=== PATIENT | female | born 1985 | race Caucasian/White ===

== ENCOUNTER → 2019-05-26 07:26 | Outpatient (CLI) | payer OTHER, SELFPAY ==
--- NOTE | ~2019-05-26 | US_ITS ---
EXAMINATION: US abdomen limited DATE: 05/26/2019 07:51 INDICATION: Right upper quadrant pain TECHNIQUE: Multiple grayscale and Doppler ultrasound images of the abdomen were obtained. COMPARISON: 12/20/2015 FINDINGS: The head and and body of the pancreas are normal. The pancreatic tail is obscured by bowel gas. The liver is normal with normal echogenicity and echotexture. No surface nodularity. Normal hepa topetal flow in the main portal vein. The gallbladder is normal with no abnormal wall thickening, per icholecystic fluid or stones. The normal common bile duct measures 3 mm. There was no sonographic Mur phy sign. IMPRESSION: 1. Normal sonographic study of the gallbladder. Reviewed, dictated and finalized at location A. UT GRADER
== END ==
PROVIDERS: PCP Family Medicine; Visit Provider Physician Assistant Medical
DX: R10.11 Right upper quadrant pain (principal)
CPT/HCPCS: 76705

== ENCOUNTER 2019-06-06 09:33 | Outpatient (CLI) | payer OTHER, SELFPAY ==
--- NOTE | ~2019-06-06 | NM_ITS ---
EXAMINATION: NM hepatobiliary w pharm DATE: 06/06/2019 14:19 INDICATION: Right upper quadrant abdominal pain. COMPARISON: Hepatobiliary scintigraphy 01/01/2016, ultrasound 05/26/2019 TECHNIQUE: 5 mCi Tc-99m mebrofenin (Choletec) was administered intravenously. Scintigraphic images o f the abdomen were obtained for one hour. Then, 2 mcg sincalide (Kinevac) IV was administered, and im aging was continued for 30 minutes. FINDINGS: There is normal clearance of radiotracer from the blood pool. There is homogeneous tracer u ptake by the liver. Activity progresses to the bowel and gallbladder. Gallbladder ejection fraction (GBEF) was 25%. Note that most patients with gallbladder dysfunction have GBEF < 35%, which overlaps with the broad normal range of 10-90%. IMPRESSION: 1. Gallbladder ejection fraction in the lower range of normal. Note that this value overlaps with th e range of values that may be seen with gallbladder dysfunction and/or chronic cholecystitis if there is appropriate clinical correlation. Reviewed, dictated and finalized at location A. E ATTENDANT IMPRESSION: 1. Gallbladder ejection fraction in the lower range of normal. Note that this value overlaps with the range of values that may be seen with gallbladder dysfu nction and/or chronic cholecystitis if there is appropriate clinical correlatio nAgapito
== END 2019-06-06 09:34 | disposition home or self-care (01) ==
LOC: ANHIMG 09:38
PROVIDERS: PCP Family Medicine; Visit Provider Physician Assistant Medical
DX: R10.11 Right upper quadrant pain (principal)
CPT/HCPCS: 78227; A9537; J2805

== ENCOUNTER 2019-06-29 02:04 | Day surgery (SDC) | payer OTHER, SELFPAY ==
[2019-06-25 11:16] VITALS: BMI 37.0
[2019-06-29] VITALS (12 sets, daily range): BP systolic 111–145; BP diastolic 66–92; PULSE 47–73; RESP 14–16; TEMP 36.3–36.6; O2SAT 92–99
--- NOTE | ~2019-06-29 | XR_ITS ---
EXAMINATION: XR cholangiogram surg 1st inj EXAM DATE: 06/29/2019 10:04 INDICATION: Cholecystectomy. TECHNIQUE: Multiples Cine fluoroscopic images were obtained during injection of the cystic duct duri ng laparoscopic cholecystectomy. Procedure performed by Dr. Varun Singh MD on 06/29/2019 10:0 4. The DAP for this procedure was 0.3 mGym2. FINDINGS: The cystic duct has been injected. There are no intraluminal filling defects within or st rictures of the common bile duct or opacified hepatic ducts. Forward flow of contrast confirmed into the duodenum. There is a low-lying left hepatic duct takeoff. IMPRESSION: Unremarkable biliary system. Reviewed, dictated and finalized at location A.
[2019-06-29] MEDS: LACTATED RINGERS 1,000 ML 30 ML IV CONT ×2 (06:30→10:30)
[2019-06-29 06:50] LABS: Alanine Aminotransferase 17 U/L (4-35); Albumin Level 4.1 g/dL (3.5-5.1); Alkaline Phosphatase 71 U/L (38-126); Aspartate Amino Transferase 23 U/L (14-36); Bilirubin,Total 0.5 mg/dL (0.2-1.3); Blood Urea Nitrogen 13 mg/dL (7-17); Carbon Dioxide 26 mmol/L (22-30); Chloride 106 mmol/L (98-107); Estimated CRCL calculation 142 ml/min; Estimated Glomerular Filt Rate > 60; Glucose 94 mg/dL (65-105); Potassium 4.1 mmol/L (3.4-5.0); Sodium 136 mmol/L (137-145)
--- NOTE | 2019-06-29 06:59 | WPDANESEPPF ---
Anes - Initial Pre Proc Eval Procedure: Operation Date: 06/29/19 07:30 Proposed Procedures p Laparoscopic Cholecystectomy, Possible Open, Possible Intraoperative Cholangiogram - Varun Singh MD Date/Time: 06/29/19 06:59 Surgeon: aVrun Singh MD Pre Op Diagnosis: Biliary Dyskinesia Patient Data Age: 33 Gender: F Height: 5 ft 6 in Weight: 105.6 kg Last Vital Signs Temp 36.3 C L 06/29/19 06:15 Pulse 73 06/29/19 06:15 Resp 16 06/29/19 06:15 BP 128/66 06/29/19 06:15 Pulse Ox 98 06/29/19 06:15 Allergies Allergy/AdvReac Type Severity Reaction Status Date / Time No Known Allergies Allergy Verified 06/29/19 06:21 Home Medications Medication Instructions Recorded Confirmed Type Adult One Daily Multivitamin 1 tab-cap PO DAILY 06/25/19 06/29/19 History Laboratory Tests 06/29/19 06:35 Sodium 136 mmol/L L mmol/L (137-145) Potassium 4.1 mmol/L mmol/L (3.4-5.0) Chloride 106 mmol/L mmol/L (98-107) Carbon Dioxide 26 mmol/L mmol/L (22-30) BUN 13 mg/dL mg/dL (7-17) Creatinine 0.60 mg/dL L mg/dL (0.7-1.0) Estim Creat Clear Calc 142 ml/min ml/min Estimated GFR > 60 (59 - ) Glucose 94 mg/dL mg/dL (65-105) Calcium 9.0 mg/dL mg/dL (8.4-10.2) Total Bilirubin 0.5 mg/dL mg/dL (0.2-1.3) AST 23 U/L U/L (14-36) ALT 17 U/L U/L (4-35) Alkaline Phosphatase 71 U/L U/L (38-126) Total Protein 7.0 g/dL g/dL (6.3-8.2) Albumin 4.1 g/dL g/dL (3.5-5.1) Patient hx anesthesia problems: none Family hx anesthesia problems: none PMFSH Past Medical History Medical History Scoliosis Surgical History Surgical History Fallopian tube abscess cyst drained 2005 H/O section (~03/19/18) History of appendectomy Hx of arthroscopic knee surgery ROLDAN. Family History Family History Mother Family history of hypercholesterolemia Hypertension Grandparent Family history of glaucoma Cerebrovascular accident Carcinoma of colon Family history of malignant neoplasm of breast Father Diabetes mellitus Social History Social History Smoking status: Never smoker Alcohol intake: current Substance use: never Gender identity (if verbalized by the patient): Female Anes - Eval Final PreProcedure Day of Procedure 06/29/19 06:59 Patient weight: obese Heart: regular rate and rhythm Lungs: clear to auscultation Airway: Mallampati scale class II Neurological: alert and oriented Last oral intake: >/= 8 hours ASA classification: II Emergent: no Anesthetic plan: proceed Anesthesia type and monitoring: general ETT and standard monitoring Informed Consent: The patient's anesthetic plan and its attendant risks and benefits were discussed with the patient/family/POA. Questions were solicited and answers provided to the satisfaction of the patient/family/POA.
--- NOTE | 2019-06-29 07:27 | WPDHPUPDATE1 ---
History and Physical Update Update Date/Time: 06/29/19 07:27 History and Physical has been reviewed, including an updated exam of the patient. There are NO changes in the patient's condition. Risks, benefits, and alternatives have been discussed and questions answered. Patient agrees to proceed with procedure.
[2019-06-29] MEDS: ceFAZolin 2 GM/D5W 50 ML 2 GM/50 ML BAG IVPB (07:28)
[2019-06-29] MEDS: BUPIVACAINE/EPINEPHRINE 0.5% 30 ML VIAL INFILTRATE (08:03)
--- NOTE | 2019-06-29 09:41 | PM.PROC ---
Procedure Note - Detailed Date of procedure: 06/29/19 Pre-op diagnosis: Biliary Dyskinesia Post-op diagnosis: same Procedure performed: Laparoscopic cholecystectomy with intraoperative cholangiogram. Description of procedure: Procedure Details: Patient was seen preoperatively in the holding area and risks, benefits and alternatives confirmed. Patient was taken to the operating room and general anesthesia was induced. A time out was then preformed with the surgery team confirming patient and site of surgery. The abdomen was prepped and draped in the usual sterile fashion. Incision was made just below the umbilicus. Two stay sutures of O- Vicryl were used to elevate the mid-line fascia beneath the umbilicus and a small incision was made under direct vision. The peritoneum was entered. The 12 mm Xiong cannula was introduced under direct vision. First under low flow and then under high flow the abdomen was insufflated with carbon dioxide never exceeding a pressure of 14. Three 5 mm trocars were then introduced under direct vision. The following trocars were introduced under direct vision: a 5 mm in the epigastrium and two 5 mm trocars along the right costal margin. The gall bladder was grasped and the cystic duct and artery were dissected free and clipped with an 5 mm endo-clip spectacle truer. A small hole was made in the cystic duct with endoshears and a cholagio-cath introduced. A cholangiogram was obtained revealing free flow into the cystic duct, common bile duct, common hepatic, right and left hepatic ducts with free flow into the duodenum with no filling defects in the intra nor extrahepatic biliary tree and no dilation. The branch to the left hepatic biliary system was noted to have a low takeoff opposite the cystic duct but otherwise no changes. The catheter was removed and the cystic duct was clipped with a 5 mm endoclip-spectacle truer. The cystic duct was then transected. The cystic artery was also transected at this point. The gall bladder was removed using electrocautery and then removed using a large 10 mm grasper via the umbilical incision. The trocars were removed visualizing hemostasis and the remaining gas evacuated. The large trocar site at the umbilicus was closed with an 0 vicryl figure of 8 suture. The 2 stay sutures mentioned above on either side of the fascia were also tied together to help approximate this midline fascia. Further local anesthetic was placed into each incision for postop pain control. The skin incisions were closed with a subcuticular suture of 4-0 Monocryl. Surgical glue then was applied to all the incisions. Patient tolerated the procedure well was taken to the recovery room in good condition. Anesthesia: MARIELENAA Surgeon: Varun Singh MD [employer] Internship: TAYO Lopez, OR 1st assist Estimated blood loss (mL): 5 Drains: No Packing: No Pathology: yes (The gallbladder) Complications: No immediate complications Condition: stable Disposition: PACU Findings: Cholangiogram showed no filling defects and a low takeoff of the left hepatic duct. Palpation of the gallbladder after removal revealed no stones. A large tubo-ovarian cyst was identified on the right. Pictures were taken for the patient to show her OB/Gyne. There appeared to be a normal tube and ovary on the left.
[2019-06-29] MEDS: ONDANSETRON INJ 4 MG/2 ML VIAL IV PUSH (11:00)
[2019-06-29] MEDS: SCOPOLAMINE 1.5 MG PATCH TRANSDERM (11:05)
== END 2019-06-29 13:50 | disposition home or self-care (01) ==
PROVIDERS: PCP Family Medicine; Visit Provider Surgery
PROC: 0FT44ZZ Resection of Gallbladder, Percutaneous Endoscopic Approach (ICD-10-PCS; CPT 47562; principal; 2019-06-29 07:30)
DX: K81.1 Chronic cholecystitis (principal); E66.9 Obesity, unspecified; Z68.37 Body mass index [BMI] 37.0-37.9, adult
CPT/HCPCS: 47563; 36415; 74300; 80053; 88304; A9270; J0131; J0690; J1100; J1200; J2250; J2270; J2405; J2704; J2710; J3010; J7120; Q9966

== ENCOUNTER 2020-03-29 19:55 | Observation (INO) | payer OTHER, SELFPAY ==
[2020-03-29] VITALS (7 sets, daily range): BP systolic 112–116; BP diastolic 57–70; PULSE 76–92
[2020-03-29] MEDS: TERBUTALINE SULFATE 1 MG/ML VIAL 0.25 MG SUB-Q ×2 (20:49→21:33)
[2020-03-29] MEDS: ACETAMINOPHEN 325 MG TABLET 650 MG PO (23:03)
[2020-03-29] MEDS: diphenhydrAMINE HCl CAP 25 MG CAPSULE PO (23:04)
--- NOTE | 2020-03-30 05:52 | OBADM ---
This patient, Toya Gomes, admitted to the OB room [facility] Post [facility] for observation. Patient/family oriented to hospital policies and general routines including ID bracelet, bed and alarms, visiting hours, pain management, procedures, bathroom and other care routines, personal items, smoking policy, room service/diet, and visiting hours. Patient/Family are encouraged to report perceived risks to care and to ask questions if they do not understand what they are told or what they should do.
--- NOTE | 2020-03-30 05:55 | PC.NURSE ---
Pt states she has been having contractions since this AM And they increased in intensity through day. Previous .
--- NOTE | 2020-04-16 08:14 | PM.OBTRLD ---
OB - Triage/Final Diagnosis Visit Information Reason for evaluation: threatened labor
== END 2020-03-29 23:20 | disposition home or self-care (01) ==
PROVIDERS: Admitting Provider Obstetrics & Gynecology; PCP Family Medicine; Visit Provider Obstetrics & Gynecology
DX: O47.9 False labor, unspecified (principal); Z3A.00 Weeks of gestation of pregnancy not specified
CPT/HCPCS: 96372; A9270; G0378; G0379; J3105

== ENCOUNTER 2020-04-04 03:25 | Inpatient (IN) | payer OTHER, SELFPAY ==
--- NOTE | 2020-03-30 06:11 | PM.OBTRLD ---
OB - Triage/Final Diagnosis Visit Information Date of evaluation: 03/29/20 Reason for evaluation: threatened labor
[2020-04-04] VITALS (60 sets, daily range): BP systolic 92–129; BP diastolic 47–79; PULSE 51–102; RESP 14–20; TEMP 36.1–36.6; O2SAT 95–99; BMI 39.2
[2020-04-04 03:55] LABS: Basophils Percent Auto 0.3 % (0.2-1.2); Eosinophils Absolute Auto 0.1 K/mm3 (0-0.3); Eosinophils Percent Auto 0.9 % (0-4.4); Hematocrit 35.6 % (37.0-47.0); Hemoglobin 11.7 g/dL (12.0-15.0); Immature Granulocyte Absolute 0.08 K/mm3 (0.00-0.031); Immature Granulocyte Percent A 0.8 % (0-0.5); Lymphocytes Absolute Auto 1.96 K/mm3 (0.9-3.2); Lymphocytes Percent Auto 19.4 % (18.3-44.2); Mean Corpuscular HGB Conc 32.9 g/dl (32-36); Mean Corpuscular Hemoglobin 28.7 pg (26-34); Mean Corpuscular Volume 87.3 fl (80-100); Mean Platelet Volume 10.2 fl (7.4-10.4); Monocytes Absolute Auto 0.7 K/mm3 (0.1-0.6); Monocytes Percent Auto 6.7 % (2.6-8.5); Neutrophils Absolute Auto 7.3 K/mm3 (1.3-6.7); Neutrophils Percent Auto 71.9 % (45.5-73.1); Platelet Count Result 317 k/mm3 (150-375); Red Blood Count 4.08 M/mm3 (4.2-5.4); Red Cell Distribution Width 13.3 % (11.5-14.5); White Blood Count 10.1 K/mm3 (4.5-10.0)
--- NOTE | 2020-04-04 04:05 | PC.NURSE ---
SEE OBIX DOCUMENTATION
--- NOTE | 2020-04-04 04:20 | LDADM ---
This patient, Toya Gomes, was admitted to [facility] on 04/04/20 at 03:25. Plans for , pain management and were discussed with patient. Patient/family oriented to hospital policies and general routines including ID bracelet, bed and alarms, visiting hours, pain management, procedures, bathroom and other care routines, personal items, smoking policy, room service/diet and guest tray routines, security routines, and visiting hours. Patient/Family are encouraged to report perceived risks to care and to ask questions if they do not understand what they are told or what they should do. See OBIX for further documentation.
[2020-04-04] MEDS: LACTATED RINGERS 1,000 ML 125 ML IV CONT ×2 (04:31→05:04)
--- NOTE | 2020-04-04 04:42 | WPDANESEPP ---
Anes - Eval Pre Procedure Procedure: Operation Date: 04/16/20 13:30 Proposed Procedures p Repeat Section - Sohail Holloway MD Date/Time: 04/04/20 04:42 Pre Op Diagnosis: Patient Data Age: 34 Gender: F Height: 1.7 m Weight: 113.5 kg Last Vital Signs Temp 36.6 C 04/04/20 03:40 Pulse 91 04/04/20 04:31 BP 129/77 04/04/20 04:31 Allergies Allergy/AdvReac Type Severity Reaction Status Date / Time No Known Allergies Allergy Verified 07/25/19 08:04 Home Medications Medication Instructions Recorded Confirmed Type Adult One Daily Multivitamin 1 tab-cap PO DAILY 06/25/19 04/04/20 History acetaminophen [Mapap 650 mg PO Q4H PRN tablet 03/29/20 Rx (acetaminophen)] Laboratory Tests 04/04/20 04/04/20 03:44 03:44 WBC 10.1 K/mm3 H K/mm3 (4.5-10.0) RBC 4.08 M/mm3 L M/mm3 (4.2-5.4) Hgb 11.7 g/dL L g/dL (12.0-15.0) Hct 35.6 % L % (37.0-47.0) MCV 87.3 fl fl (80-100) MCH 28.7 pg pg (26-34) MCHC 32.9 g/dl g/dl (32-36) RDW 13.3 % % (11.5-14.5) Plt Count 317 k/mm3 k/mm3 (150-375) MPV 10.2 fl fl (7.4-10.4) Immature Gran % (Auto) 0.8 % H % (0-0.5) Neut % (Auto) 71.9 % % (45.5-73.1) Lymph % (Auto) 19.4 % % (18.3-44.2) Wayne % (Auto) 6.7 % % (2.6-8.5) Eos % (Auto) 0.9 % % (0-4.4) Baso % (Auto) 0.3 % % (0.2-1.2) Lymph # (Auto) 1.96 K/mm3 K/mm3 (0.9-3.2) Wayne # (Auto) 0.7 K/mm3 H K/mm3 (0.1-0.6) Eos # (Auto) 0.1 K/mm3 K/mm3 (0-0.3) Baso # (Auto) 0.0 K/mm3 K/mm3 (0.0-0.1) Abs Immat Gran (auto) 0.08 K/mm3 H K/mm3 (0.00-0.031) Absolute Neuts (auto) 7.3 K/mm3 H K/mm3 (1.3-6.7) Absolute Nucleated RBC 0.0 K/mm3 K/mm3 (0.0-0.012) Nucleated RBC % 0.0 % % (0.0-0.2) RPR Pending Patient hx anesthesia problems: post op nausea/vomiting Family hx anesthesia problems: none [facility] Past Medical History Medical History (Updated 07/25/19 @ 08:09 by Gabby Smith) Scoliosis Surgical History Surgical History Fallopian tube abscess cyst drained 2005 H/O section (~03/19/18) History of appendectomy Hx laparoscopic cholecystectomy Hx of arthroscopic knee surgery ROLDAN. Family History Family History Mother Family history of hypercholesterolemia Hypertension Grandparent Family history of glaucoma Cerebrovascular accident Carcinoma of colon Family history of malignant neoplasm of breast Father Diabetes mellitus Social History Social History Smoking status: Former smoker Alcohol intake: current Substance use: never Gender identity (if verbalized by the patient): Female Spiritual care concerns: No Exam Day of Procedure 04/04/20 04:42
--- NOTE | 2020-04-04 05:07 | PM.IMHP ---
H&P: HPI History of Present Illness Date/Time: 04/04/20 05:07 Chief Complaint: Water broke. Narrative: 34 y/o at 37 2/7 weeks here after a gush of fluid. SROM confirmed. Feeling painful contractions. GBS neg. Review of Systems Review of Systems: All systems reviewed & are unremarkable except as noted in HPI and below PMFSH Past Medical History Medical History (Updated 04/04/20 @ 05:10 by Sohail Holloway MD) Scoliosis Surgical History Surgical History (Updated 04/04/20 @ 05:10 by Sohail Holloway MD) Fallopian tube abscess cyst drained 2005 H/O section (~03/19/18) History of appendectomy Hx laparoscopic cholecystectomy Hx of arthroscopic knee surgery ROLDAN. Family History Family History Mother Family history of hypercholesterolemia Hypertension Grandparent Family history of glaucoma Cerebrovascular accident Carcinoma of colon Family history of malignant neoplasm of breast Father Diabetes mellitus Social History Social History Smoking status: Former smoker Alcohol intake: current Substance use: never Gender identity (if verbalized by the patient): Female Spiritual care concerns: No Meds Home Medications and Allergies Home Medications Medication Instructions Recorded Confirmed Type Adult One Daily Multivitamin 1 tab-cap PO DAILY 06/25/19 04/04/20 History acetaminophen [Mapap 650 mg PO Q4H PRN tablet 03/29/20 Rx (acetaminophen)] Allergies Allergy/AdvReac Type Severity Reaction Status Date / Time No Known Allergies Allergy Verified 07/25/19 08:04 Vital Signs Vital Signs - 24 hr 04/04/20 03:40 04/04/20 03:45 04/04/20 04:01 Temperature 36.6 C Pulse Rate 102 H 93 88 Blood Pressure 111/73 120/77 118/79 04/04/20 04:16 04/04/20 04:31 Temperature Pulse Rate 82 91 Blood Pressure 129/70 129/77 Exam Const: Orientation/consciousness: patient oriented x3 Other: Well-developed, well-nourished female in no acute distress. Neck: Thyroid: thyroid normal Lymphatic: no lymphadenopathy noted (in neck, axilla or inguinal nodes) Resp: Effort & Inspection: normal respiratory effort Auscultation: clear to auscultation bilaterally Cardio: Rate: regular rate Rhythm: regular rhythm Heart sounds: S1 normal heart sound present and S2 normal heart sound present GI: Other: ABD: Soft, nontender, nondistended, gravid. No guarding or rebound tenderness. No hepatosplenomegaly. NST reactive. TOCO: contractions every 2-3 min. : General: Yes no CVA tenderness Other: Cervix 4/50/-2, vertex Back/Spine/Pelvis: Back: no CVA tenderness Skin: General skin exam: normal color and no rashes or lesions noted Neuro: General: patient oriented x3 Extrem: Other: Extremities: nontender with no edema Psych: Mental Status: mental status grossly normal Affect: normal affect H&P: Results Labs Labs: Short CBC 04/04/20 Range/Units 03:44 WBC 10.1 H (4.5-10.0) K/mm3 Hgb 11.7 L (12.0-15.0) g/dL Hct 35.6 L (37.0-47.0) % Plt Count 317 (150-375) k/mm3 Assessment and Plan Assessment and plan (1) SROM (spontaneous rupture of membranes): Status: Acute Assessment and Plan: A: IUP at term with SROM, prior P: Offered repeat . She understands risks of surgery to include risks of anesthesia, risks of pain, infection, bleeding, blood products, thromboembolic phenomena and damage to adjacent structures such as bowel, bladder, ureters, blood vessels and nerves. She understands all these risks and elects to proceed with surgery. (2) Term : Code(s): Z34.90 - Encounter for supervision of normal , unspecified, unspecified trimester Status: Acute (3) H/O section: Onset Date: ~03/19/18 Code(s): Z98.891 - History of uterine scar from previous surg
[2020-04-04] MEDS: ceFAZolin 2 GM/D5W 50 ML 2 GM/50 ML BAG IVPB (05:11)
--- NOTE | 2020-04-04 05:22 | WPDANESEFPP ---
Anes - Eval Final PreProcedure Day of Procedure 04/04/20 05:22 Patient weight: obese Heart: regular rate and rhythm Lungs: clear to auscultation Airway: Mallampati scale class II Neurological: alert and oriented Last oral intake: >/= 8 hours ASA classification: II Emergent: no Anesthetic plan: proceed Anesthesia type and monitoring: regional spinal and standard monitoring Informed Consent: The patient's anesthetic plan and its attendant risks and benefits were discussed with the patient/family/POA. Questions were solicited and answers provided to the satisfaction of the patient/family/POA.
--- NOTE | 2020-04-04 06:08 | WPDHPUPDATE1 ---
History and Physical Update Update Date/Time: 04/04/20 06:08 History and Physical has been reviewed, including an updated exam of the patient. There are NO changes in the patient's condition. Risks, benefits, and alternatives have been discussed and questions answered. Patient agrees to proceed with procedure.
--- NOTE | 2020-04-04 06:08 | PM.OBPRVD ---
OB - Delivery Note Procedure Delivery date: 04/04/20 Procedure: Procedures Operation Date: 04/16/20 13:30 <No data on this case meets the specified criteria> Repeat low transverse delivery Incision and drainage of right paratubal cyst Induction method: none Delivery monitor: external FHT and external uterine Route of delivery: (LTCS) Specimen: Yes (cord blood) Quantitative Blood Loss (ml): 175 Anesthesia type: Spinal Disposition: PACU Complications: None Narrative: Findings: The uterus was unremarkable. There was a large, simple-appearing, right-sided paratubal cyst measured approximately 9 x 6 x 4 cm. The left Fallopian tube and bilateral ovaries were unremarkable. The patient was taken to the operating room where she was prepared and draped in the usual sterile fashion in dorsal supine position with a leftward tilt. She received cefazolin preoperatively. Spinal anesthesia was found to be adequate. A Pfannenstiel skin incision was made along the previous scar line and was carried through to the underlying layer of the fascia. The fascia was incised in the midline and the incision was extended laterally. The fascia was dissected free of the underlying rectus muscles. The rectus muscles were in the midline. The peritoneum was identified, tented up and entered sharply. The peritoneal incision was extended superiorly and inferiorly with good visualization of the bladder. The bladder blade was placed. The vesicouterine peritoneum was identified, tented up and entered sharply. The incision was extended laterally and the bladder flap was developed. The bladder blade was replaced. The uterus was then incised sharply in a transverse fashion along the lower uterine segment. The incision was extended laterally. The infant's head was delivered atraumatically to the sterile field, followed by the body. The nose and mouth were bulb suctioned. After a delay, the cord was clamped and cut. The infant was handed off the field. Cord blood was collected. The placenta was removed manually and was passed off the field. The uterus was exteriorized and cleared of all clots and debris. The uterine incision was reapproximated using 0 Monocryl in a running, locked fashion. Excellent hemostasis resulted as did excellent reapproximation of the normal anatomy. The right paratubal cyst was incised and drained of serous fluid. The uterus was returned the abdomen. The pelvis was irrigated copiously with warmed normal saline. Rigorous hemostasis was assured. The fascial layer was reapproximated using 0 Vicryl in a running fashion. The skin was closed with a running, subcuticular stitch of 4 0 Vicryl. Dermaflex was applied externally. Sponge, lap, needle and instrument counts were correct. The patient was taken to the recovery room in stable condition. The went to the nursery in stable condition. I was present and scrubbed the entire procedure. Baby Date of : 04/04/20 Time of : 05:33 Weeks of gestation at delivery: 37 gender: Male Weight (pounds): 7 Weight (ounces): 13 presentation: vertex Placenta delivery description: Manual Removal and Normal Configuration cord vessel description: 3 Vessels score one minute: 9 score five minutes: 9
--- NOTE | 2020-04-04 06:13 | PM.OBDSVD ---
DS: Admitting Diagnosis Admitting Diagnosis Admitting Diagnosis: SROM IUP at 37 2/7 weeks Prior DS: Discharge Diagnosis Discharge Diagnosis (1) H/O section: Onset Date: ~03/19/18 Code(s): Z98.891 - History of uterine scar from previous surgery Status: Acute (2) Term : Code(s): Z34.90 - Encounter for supervision of normal , unspecified, unspecified trimester Status: Acute (3) SROM (spontaneous rupture of membranes): Status: Acute OB - DS: Summary OB Procedures : None OB Procedures Intrapartum: OB Procedures: : None Peripartum Data Procedures: Procedures Operation Date: 04/04/20 05:15 <No data on this case meets the specified criteria> Operation Date: 04/16/20 13:30 <No data on this case meets the specified criteria> Time Spent with Patient Time attestation: Total time spent providing and/or coordinating discharge services: DS: Data Data Completed and Pending Labs on day of discharge: Labs from last 24 hours 04/04/20 04/04/20 04/04/20 03:44 03:44 03:44 WBC 10.1 H RBC 4.08 L Hgb 11.7 L Hct 35.6 L MCV 87.3 MCH 28.7 MCHC 32.9 RDW 13.3 Plt Count 317 MPV 10.2 Immature Gran % (Auto) 0.8 H Neut % (Auto) 71.9 Lymph % (Auto) 19.4 [place] % (Auto) 6.7 Eos % (Auto) 0.9 Baso % (Auto) 0.3 Lymph # (Auto) 1.96 [place] # (Auto) 0.7 H Eos # (Auto) 0.1 Baso # (Auto) 0.0 Abs Immat Gran (auto) 0.08 H Absolute Neuts (auto) 7.3 H Absolute Nucleated RBC 0.0 Nucleated RBC % 0.0 RPR Pending Blood Type O Positive Antibody Screen Negative Discharge Plan Discharge Attending physician on discharge: Sohail Holloway Consulting providers: Rafael Duque Discharging Clinician: Sohail Holloway Patient Disposition: Home, Self-Care Activity: may shower, may drive after 2 weeks and pelvic rest Diet: regular Wound Care Instructions: incision open to air Discharge Instructions: Call or return if temperature above 100.4? F, increased abdominal pain, increased vaginal bleeding or any new problems. Education: Mom and Baby Guide Given to: Mother Follow-Up: Call your delivering provider's office for an appointment to be seen in: 4 Weeks Mom and baby should come to the [facility] for the follow-up appointment. Appointment Date/Time: April 07, 2020 at 10:00 am What to expect at your follow-up visit: Blood Pressure Check Physical Assessment Call [phone] if you are unable to keep your appointment time. BREAST CARE: * Wear a snug supportive bra. * For engorgement discomfort: Breast Feeding: * Apply warm moist washcloths * Express milk as needed to relieve engorgement * Wear loose clothing Bottle Feeding: * May apply ice packs * For sore nipples: * Identify correct latch-on * Apply warm moist washcloths before and after nursing * Air dry nipples after nursing * May apply Lansinoh cream to nipples ABDOMINAL INCISION: (if applicable) * Allow incision to air dry * Do NOT use lotions for powders on your incision * When showering, allow soap and water to run over the incision, but do not wash incision EPISIOTOMY/PERINEAL CARE: * Until bleeding stops, use your jose bottle after urinating * Change your pad frequently throughout the day * You may take sitz baths several times a day (fill your bathtub with warm water and soak for 20 minutes.) Do NOT bathe in the water * No tub baths until seen by your physician - You may shower ACTIVITY: * Rest as much as possible. * Do not exercise or lift anything heavier than your baby (such as laundry or other children.) * Avoid stairs or driving as much as possible. * Do not put anything into the vagina. No douching, tampons, or sexual activity until seen by
--- NOTE | 2020-04-04 06:30 | PC.NURSE ---
Pt states SROM cleaer fluid at 0205. Leaking moderate amount clear fluid on arrival. Contractions rated as 6. SVE 3.[address] Holloway notified at 0405 and will come in to do
[2020-04-04] MEDS: OXYTOCIN 30 UNITS/NS 500 ML 30 UNITS/500 ML BAG 125 UNITS IV CONT (08:09)
--- NOTE | 2020-04-04 08:50 | PC.NURSE ---
Pt taken to room 110 for family to see baby.
--- NOTE | 2020-04-04 09:25 | PC.NURSE ---
Pt taken to rrom 281. Report given.
[2020-04-04] MEDS: IBUPROFEN 600 MG TABLET PO ×2 (11:50→18:46)
--- NOTE | 2020-04-04 12:30 | OBPPTRN ---
0984 Patient transferred to post room #281 via stretcher. Support person present. Oriented to unit, room, information board, rooming in, admission packet and security measures. Patient verbalizes understanding.
[2020-04-04] MEDS: DEXTROSE 5%/0.45% SOD CHL 1,000 ML 125 ML IV CONT (12:55)
[2020-04-04] MEDS: SIMETHICONE 80 MG TAB.CHEW PO (18:47)
[2020-04-05] MEDS: IBUPROFEN 600 MG TABLET PO ×4 (00:13→18:49)
[2020-04-05 00:15] VITALS: BP 98/56; PULSE 66; RESP 16; TEMP 36.2; O2SAT 97
[2020-04-05 05:20] VITALS: BP 110/63; PULSE 65; RESP 16; TEMP 36.7; O2SAT 99
[2020-04-05] MEDS: SIMETHICONE 80 MG TAB.CHEW PO (05:28)
[2020-04-05 06:32] LABS: Basophils Percent Auto 0.2 % (0.2-1.2); Eosinophils Absolute Auto 0.2 K/mm3 (0-0.3); Eosinophils Percent Auto 1.4 % (0-4.4); Hematocrit 30.4 % (37.0-47.0); Hemoglobin 9.9 g/dL (12.0-15.0); Immature Granulocyte Absolute 0.04 K/mm3 (0.00-0.031); Immature Granulocyte Percent A 0.4 % (0-0.5); Lymphocytes Absolute Auto 1.58 K/mm3 (0.9-3.2); Lymphocytes Percent Auto 14.3 % (18.3-44.2); Mean Corpuscular HGB Conc 32.6 g/dl (32-36); Mean Corpuscular Hemoglobin 28.9 pg (26-34); Mean Corpuscular Volume 88.9 fl (80-100); Mean Platelet Volume 10.2 fl (7.4-10.4); Monocytes Absolute Auto 0.8 K/mm3 (0.1-0.6); Monocytes Percent Auto 6.8 % (2.6-8.5); Neutrophils Absolute Auto 8.5 K/mm3 (1.3-6.7); Neutrophils Percent Auto 76.9 % (45.5-73.1); Platelet Count Result 255 k/mm3 (150-375); Red Blood Count 3.42 M/mm3 (4.2-5.4); Red Cell Distribution Width 13.5 % (11.5-14.5); White Blood Count 11.1 K/mm3 (4.5-10.0)
[2020-04-05 07:45] VITALS: BP 114/65; PULSE 72; RESP 18; TEMP 36.7
--- NOTE | 2020-04-05 07:53 | PM.OBPNVD ---
OB - PN: Subj Subjective Date/time seen: 04/05/20 07:53 Interval history: Patient doing well this AM. She is ambulating to the restroom. She has not yet attempted PO. She reports adequate pain control. Her bleeding is normal and she reports normal lochia. She denies fever, chills, N/V. She has not yet passed flatus. Patient comments: no complaints and pain well controlled; no flatus present OB - PN: Obj Data Labs CBC & Chem 7: 04/05/20 06:26 Labs: Laboratory Results - last 24 hr 04/05/20 06:26 WBC 11.1 H RBC 3.42 L Hgb 9.9 L Hct 30.4 L MCV 88.9 MCH 28.9 MCHC 32.6 RDW 13.5 Plt Count 255 MPV 10.2 Immature Gran % (Auto) 0.4 Neut % (Auto) 76.9 H Lymph % (Auto) 14.3 L [place] % (Auto) 6.8 Eos % (Auto) 1.4 Baso % (Auto) 0.2 Lymph # (Auto) 1.58 [place] # (Auto) 0.8 H Eos # (Auto) 0.2 Baso # (Auto) 0.0 Abs Immat Gran (auto) 0.04 H Absolute Neuts (auto) 8.5 H Absolute Nucleated RBC 0.0 Nucleated RBC % 0.0 OB - PN A/P Plan day: 1 Plan: routine care Comments: patient doing well this AM will plan to D/C [place] once ambulating advance diet as tolerated H/H continue routine PP care plan for infant circumcision today Time Spent With Patient Time: Total time spent is greater than 50% in coordination of care (as documented) at patient's floor/unit and/or counseling patient: Time with patient: less than 15 minutes Review of Systems Constitutional: Constitutional: Reports no additional constitutional complaints Cardiovascular: Cardiovascular: Reports no additional cardiovascular complaints Respiratory: Respiratory: Reports no additional respiratory complaints Gastrointestinal: Gastrointestinal: Reports no additional gastrointestinal complaints Genitourinary: Genitourinary: Reports no additional female genitourinary complaints Exam Const: General: comfortable and no acute distress Resp: Effort & Inspection: normal respiratory effort Auscultation: clear to auscultation bilaterally Cardio: Rate: regular rate GI: GI Palp: Yes Soft to palpation and Yes Tenderness to palpation present (GI) (appropriately tender around incision ) Auscultation: normal bowel sounds Other: fundus firm and below umbilicus Incision C/D/I Urinary Catheter: Urinary Catheter: urine clear Psych: Appearance: grossly normal Mental Status: mental status grossly normal Affect: normal affect
[2020-04-05] MEDS: POLYSACCHARIDE IRON COMPLEX 150 MG CAPSULE PO ×2 (08:46→16:28)
[2020-04-05] MEDS: MULTIVIT/MIN/PREN/FOL AC/IRON TABLET 1 TAB PO (08:46)
[2020-04-05] MEDS: DOCUSATE SODIUM 100 MG CAPSULE PO ×2 (08:46→16:28)
--- NOTE | 2020-04-05 13:42 | WPDANLDPN2 ---
Anes-Prog Note L&D Date/Time: 04/05/20 13:42 Comfortable throughout: section Neuraxial method: spinal Epidural/Spinal procedure site: clean & non-tender Neuro status: Neuro function grossly intact. Cardiovascular status: normal Respiratory status: normal Airway patency: baseline Mental status: baseline Post-Op hydration status: normal Vital Signs: Last Vital Signs Temp 36.7 C 04/05/20 07:45 Pulse 72 04/05/20 07:45 Resp 18 04/05/20 07:45 BP 114/65 04/05/20 07:45 Pulse Ox 99 04/05/20 05:20 Pain score (VAS): 0/10. Patient resting in bed at time of assessment, appears comfortable. Support person at bedside. I/O: Intake & Output 04/04/20 04/05/20 04/05/20 23:59 07:59 15:59 Intake Total 3300 1500 Output Total 2600 1800 Balance 700 -300 Post-procedural complaints: none Patient feedback: Patient satisfied with anesthetic care.
--- NOTE | 2020-04-05 13:51 | WPDANLDNPN2 ---
Anes-Prog Note L&D-Neuraxial Date/Time: 04/05/20 13:51 Neuraxial medications: intrathecal PF morphine Opiod-related complaints: none Patient feedback: Patient satisfied with post-operative pain management.
[2020-04-05 20:05] VITALS: BP 118/65; PULSE 76; RESP 15; TEMP 36.9; O2SAT 99
[2020-04-06] MEDS: IBUPROFEN 600 MG TABLET PO ×2 (02:05→08:03)
--- NOTE | 2020-04-06 07:52 | P.DS_ITS ---
DS: Admitting Diagnosis Admitting Diagnosis Admitting Diagnosis: intrauterine in the third trimester OB - DS: Summary OB Procedures : None OB Procedures Intrapartum: OB Procedures: : None Peripartum Data Infant Delivery Method: Section Procedures: Procedures Operation Date: 04/04/20 05:15 Actual Procedures Side Surgeon p Section Sohail Holloway MD Operation Date: 04/16/20 13:30 <No data on this case meets the specified criteria> complications: none Status at Discharge Functional status at discharge: independent ambulation Overall status at discharge: patient is progressing back to baseline Time Spent with Patient Time attestation: Total time spent providing and/or coordinating discharge services: Time spent: Less than 30 minutes Exam Const: General: comfortable and no acute distress Resp: Effort & Inspection: normal respiratory effort Auscultation: clear to auscultation bilaterally Cardio: Rate: regular rate GI: Inspection: non-distended GI Palp: Yes Soft to palpation, No Firmness to palpation present (GI), Yes Tenderness to palpation present (GI) (mild tenderness over incision ) and No Guarding due to palpation present (GI) Auscultation: normal bowel sounds Psych: Appearance: grossly normal Mental Status: mental status grossly normal Discharge Plan Discharge Attending physician on discharge: Sohail Holloway Discharging Clinician: Sohail Holloway Patient Disposition: Home, Self-Care Activity: may shower, may drive after 2 weeks and pelvic rest Diet: regular Wound Care Instructions: incision open to air Discharge Instructions: Call or return if temperature above 100.4? F, increased abdominal pain, incre ased vaginal bleeding or any new problems. Stand Alone Forms: General Discharge Information Follow-up/Referrals: Sohail Holloway MD [Physician] - 4 Weeks Discharge Medications: New hydrocodone-acetaminophen 5-325 mg tablet 1 tablet PO Q4H PRN (Reason: pain) Qty: 28 RF: 0 ibuprofen 600 mg Tablet 600 mg PO Q6H PRN (Reason: Cramping) Qty: 30 RF: 0 Jbk-Q-Smrvzw Cream 1 applic topical PRN PRN (Reason: Sore Nipples) Qty: 28 RF: 0 docusate sodium 100 mg Capsule 100 mg PO BID Qty: 30 RF: 0 Continued Adult One Daily Multivitamin 1 tab-cap PO DAILY RF: 0 acetaminophen [Mapap (acetaminophen)] 325 mg Tablet 650 mg PO Q4H PRN (Reason: Headache) RF: 0 Date of admission: 04/04/20 03:25 Primary Care Provider: Sheldon Williamson Admitting Provider: Sohail Holloway Attending physician on admission: Sohail Holloway Condition: Stable
[2020-04-06 08:00] VITALS: BP 117/75; PULSE 70; RESP 18; TEMP 36.9
[2020-04-06] MEDS: POLYSACCHARIDE IRON COMPLEX 150 MG CAPSULE PO (08:03)
[2020-04-06] MEDS: DOCUSATE SODIUM 100 MG CAPSULE PO (08:03)
[2020-04-06] MEDS: MULTIVIT/MIN/PREN/FOL AC/IRON TABLET 1 TAB PO (08:03)
[2020-04-07 09:56] VITALS: BP 121/64; PULSE 86; RESP 20; TEMP 36.6; O2SAT 99
[2020-04-07 13:02] LABS: Rapid Plasma Reagin Non-Reactive (NonReactive)
== END 2020-04-06 12:05 | disposition home or self-care (01) | DRG 788 ==
LOC: ANHLDR 06:17 → ANHOB2 04-06 07:59 → ANHLDR 04-07 12:04 → ANHOB2 04-07 12:04 → ANHOBPP 04-07 12:04
PROVIDERS: Admitting Provider Obstetrics & Gynecology; PCP Family Medicine; Visit Provider Student in an Organized Health Care Education/Training Program
PROC: 10D00Z1 Extraction of Products of Conception, Low, Open Approach (ICD-10-PCS; CPT 59514; principal; 2020-04-04 05:15)
DX: O34.211 Maternal care for low transverse scar from previous cesarean delivery (principal); O99.214 Obesity complicating childbirth; E66.9 Obesity, unspecified; Z87.891 Personal history of nicotine dependence; N83.8 Other noninflammatory disorders of ovary, fallopian tube and broad ligament; Z3A.37 37 weeks gestation of pregnancy; Z37.0 Single live birth
CPT/HCPCS: 36415; 85025; 86592; 86850; 86900; 86901; A9270; J0131; J0690; J2274; J2370; J2405; J2590; J7120

== ENCOUNTER 2022-01-24 17:39 | Emergency (ER) | payer OTHER, SELFPAY ==
--- NOTE | 2022-01-24 17:43 | ED.URI ---
HPI - URI/Sore Throat General Chief Complaint: Upper Respiratory Infection Stated Complaint: sore throat, sore in mouth Time Seen by Provider: 01/24/22 17:43 Source: patient and RN notes reviewed History of Present Illness HPI Narrative: Patient is a 36-year-old female who presents the urgent care with complaints of a sore throat and sores inside of the mouth. Patient states that the sore started on Tuesday and worsened over the weekend. Patient has had a positive exposure to her nephew who was diagnosed with strep. Patient is not taking anything [id number] for her symptoms. Denies any fever, nausea or vomiting. No other acute complaints. No acute distress noted. Patient aware of the plan of care. Some parts of this dictation were generated by voice recognition software and may contain typographical and/or grammatical inaccuracies. Related Data Home Medications Medication Instructions Recorded Confirmed Adult One Daily Multivitamin 1 tab-cap PO DAILY 06/25/19 04/22/21 etonogestrel 68 mg subdermal 1 implant subdermal ONCE 04/22/21 04/22/21 implant (Nexplanon) Allergies Allergy/AdvReac Type Severity Reaction Status Date / Time No Known Allergies Allergy Verified 06/17/21 08:36 Review of Systems Review of Systems: CONSTITUTIONAL: Denies fever, chills, or sweats. EYES: Denies visual changes, redness, or discharge. ENT: Denies rhinorrhea, congestion, or otalgia. Reports of sore throat and blisters in the mouth. CARDIOVASCULAR: Denies chest pain, palpitations, or edema. RESPIRATORY: Denies cough or dyspnea. GASTROINTESTINAL: Denies abdominal pain, nausea, vomiting, or diarrhea. GENITOURINARY: Denies dysuria or hematuria. SKIN: Denies rash or itching. MUSCULOSKELETAL: Denies back pain, joint pain, or myalgia. NEUROLOGIC: Denies headache, numbness, or weakness. All other systems reviewed are negative, except as documented in HPI. [facility] Past Medical History Medical History (Updated 01/24/22 @ 18:00 by VIKTOR Maza) Scoliosis Surgical History Surgical History (Updated 06/17/21 @ 08:36 by Jennifer Mendosa) Fallopian tube abscess cyst drained 2005 H/O section (~03/19/18) History of appendectomy Hx laparoscopic cholecystectomy Hx of arthroscopic knee surgery ROLDAN. Family History Family History (System 06/17/21 @ 08:36 by Jennifer Mendosa) Mother Family history of hypercholesterolemia Hypertension Grandparent Family history of glaucoma Cerebrovascular accident Carcinoma of colon Family history of malignant neoplasm of breast Father Diabetes mellitus Social History Social History (System 06/17/21 @ 08:36 by Jennifer Mendosa) Smoking status: Former smoker Alcohol intake: current Substance use: never Gender identity (if verbalized by the patient): Female Spiritual care concerns: No Comments At the time of my signature, I reviewed and agree with the nursing past medical, surgical, social, and family history. There is no relevant family history pertinent to the patient complaint. Exam Narrative: GENERAL: This is a well-nourished, well-developed patient, in no apparent distress. HEAD: normocephalic, atraumatic. EYES: PERRL. Sclera clear/white. Vision is grossly intact. EARS: External ears normal, auditory canals clear and without drainage, TMs normal without perforation. Hearing grossly intact. NOSE: External nose normal with no obvious nasal discharge, nares without redness, no rhinorrhea. THROAT: Mucous membranes moist. Moderate erythema to posterior pharynx with notable petechiae to the roof of the mouth and canker sores to the inside of the upper lip NECK: Neck supple, non-tender without lymphadenopathy, masses or thyromegaly. CARDIOVASCULAR: Regular rate and rhythm without murmurs, gallops, or rubs. RESPIRATORY: Clear to auscultation. Breath sounds equal bilaterally. No wheezes, rales, or rhonchi. SKIN: warm, intact with no suspicious lesions or rash, goo
[2022-01-24 17:52] VITALS: BP 116/77; PULSE 97; RESP 16; TEMP 36.8; O2SAT 100
== END 2022-01-24 18:14 | disposition home or self-care (01) ==
PROVIDERS: Emergency Provider Nurse Practitioner Family
DX: K12.0 Recurrent oral aphthae (principal); J02.9 Acute pharyngitis, unspecified; Z87.891 Personal history of nicotine dependence; M41.9 Scoliosis, unspecified
CPT/HCPCS: 87081; 87880; 99213; G0463

== ENCOUNTER 2022-02-27 17:07 | Emergency (ER) | payer OTHER, SELFPAY ==
[2022-02-27 17:21] VITALS: BP 123/77; PULSE 116; RESP 16; TEMP 38.1; O2SAT 100
--- NOTE | 2022-02-27 17:38 | ED.URI ---
HPI - URI/Sore Throat General Chief Complaint: Upper Respiratory Infection Stated Complaint: SORE THROAT/EARACHE Time Seen by Provider: 02/27/22 17:38 Source: patient, RN notes reviewed and old records reviewed Mode of arrival: ambulatory Limitations: no limitations History of Present Illness HPI Narrative: 36-year-old female presents to [facility] with complaints of sore throat for the past 2 days with low grade fevers and burning feeling her throat and she wants to be checked for strep, Patient reports that she did a test at home on which was suspicious of being positive and plans on repeating today. Patient did take some Tylenol for her fever and discomfort. Patient denies any cough, nausea or vomiting, some ear pain right,denies any body aches. MD elicited complaint: sore throat and other (ear pain) Onset (ago): day(s) (2) Pain scale (0-10): 4 Treatments prior to arrival: acetaminophen Related Data Home Medications Medication Instructions Recorded Confirmed Adult One Daily Multivitamin 1 tab-cap PO DAILY 06/25/19 04/22/21 etonogestrel 68 mg subdermal 1 implant subdermal ONCE 04/22/21 04/22/21 implant (Nexplanon) Allergies Allergy/AdvReac Type Severity Reaction Status Date / Time No Known Allergies Allergy Verified 02/27/22 17:29 Review of Systems Review of Systems: CONSTITUTIONAL: REports malaise, chills, sweats, or fever. EYES: Denies visual changes, redness, or discharge. ENT: Reports rhinorrhea, congestion, no sinus pain, right otalgia and sore throat. CARDIOVASCULAR: Denies chest pain, palpitations, or edema. RESPIRATORY: Reports no acute cough.? Denies dyspnea. GASTROINTESTINAL: Denies abdominal pain, nausea, vomiting, diarrhea SKIN: Denies rash or itching. MUSCULOSKELETAL: Denies myalgia. NEUROLOGIC: Denies headache. All systems reviewed & are unremarkable except as noted in HPI and below PMFSH Past Medical History Medical History (Updated 03/05/22 @ 07:18 by Dulce Maria Gilman NP) Fracture of left foot Scoliosis Surgical History Surgical History Fallopian tube abscess cyst drained 2005 H/O section (~12/09/18) History of appendectomy Hx laparoscopic cholecystectomy Hx of arthroscopic knee surgery ROLDAN. Family History Family History Mother Family history of hypercholesterolemia Hypertension Grandparent Family history of glaucoma Cerebrovascular accident Carcinoma of colon Family history of malignant neoplasm of breast Father Diabetes mellitus Social History Social History (Updated 03/05/22 @ 07:16 by Dulce Maria Gilman NP) Smoking status: Former smoker Alcohol intake: former Alcohol use details: social only presently Substance use: never Gender identity (if verbalized by the patient): Female Spiritual care concerns: No Comments At time of signature, agree with nursing past medical, surgical, social and family history. There is no relevant family history pertinent to the presenting complaint Exam Narrative: GENERAL: Well-appearing, well-nourished, and in no acute distress. HEAD: Normocephalic EYES: PERRLA, conjunctivae clear ENT: Nares clear, turbinates edematous and erythematous, clear discharge. Mucous membranes moist. TM pearly stephenson with dull light reflex bilaterally; no tragal tenderness. Oropharynx erythematous without lesions. Tonsils are enlarged and with exudate on right tonsil, no drooling, no hoarseness, no trismus, uvula midline. NECK: Supple. lymphadenopathy CHEST: Clear to auscultation, breath sounds equal. No wheezing, rhonchi, rales, or stridor. No respiratory distress, speaks in full sentences.SAO2 100% on room air HEART: Regular rate and rhythm. No murmur heard. SKIN: Warm, dry, no rash. NEURO: Alert and oriented x3. PSYCH: Normal mood and affect Course Course
== END 2022-02-27 17:59 | disposition home or self-care (01) ==
PROVIDERS: Emergency Provider Registered Nurse
DX: J02.0 Streptococcal pharyngitis (principal); Z87.891 Personal history of nicotine dependence; M41.9 Scoliosis, unspecified
CPT/HCPCS: 81025; 87880; 99213; G0463

== ENCOUNTER 2022-10-06 20:34 | Observation (INO) | payer OTHER, SELFPAY ==
[2022-10-06 20:51] VITALS: BP 126/70; PULSE 98
[2022-10-06 21:01] VITALS: BMI 40.4
[2022-10-06 21:09] LABS: Appearance Urine Clear (Clear); Bacteria Urine 1+ /hpf; Bilirubin Urine Negative (Negative); Blood Urine Negative (Negative); Color Urine Yellow (Yellow); Glucose Urine UA 1+ mg/dL (Negative); Ketones Urine Trace mg/dL (Negative); Leukocyte Esterase Ur 1+ LEU/UL (Negative); Nitrate Urine Negative (Negative); Non Pathogenic Casts 0-2; Protein Urine Trace mg/dL (Negative); RBC Urine 0-2 /hpf (0-2); Specific Grav Ur 1.018 (1.001-1.035); Squamous Epithelial Cell Urine Few /hpf (Few); Urobilinogen Urine 0.2 mg/dL (<2.0)
[2022-10-06 21:10] LABS: Add Urine Microscopic? YES
[2022-10-06] MEDS: NIFEdipine 10 MG CAPSULE PO (22:13)
[2022-10-06] MEDS: BETAMETHASONE SOD PHOS/ACETATE 30 MG/5 ML VIAL 12 MG IM (22:15)
--- NOTE | 2022-10-06 22:50 | WPDOBADMIT ---
Obstetrics - Admit Note Admission Note: 37 y/o at 35 5/7 weeks here with contractions. No vaginal bleeding. No leakage of fluid. She has responded well to PO hydration and a dose of Procardia 10 mg po. AVSS NST reactive TOCO: contractions irregularly ABD soft, nontender, gravid, vertex EXT nontender Cervix closed / thick A: IUP at 35 5/7 weeks with contractions, stable. P: Started steroid course. Continue Procardia 10 mg po q 6 hours for now. Home with precautions, to f/u as scheduled.
--- NOTE | 2022-10-09 10:27 | PM.OBTRLD ---
OB - Triage/Final Diagnosis Visit Information Comments/Additional reasons for admission: I have assessed the risk for this patient, Toya Chirinosharveyramseyidaignacio, and determined that she would benefit from observation care. Evaluation Laboratory results: Laboratory Tests 10/06/22 20:57 Urine Color Yellow Urine Appearance Clear Urine pH 6.0 Ur Specific [place] 1.018 Urine Protein Trace Urine Glucose (UA) 1+ H Urine Ketones Trace H Ur Blood (Man) Negative Urine Nitrate Negative Urine Bilirubin Negative Urine Urobilinogen 0.2 Leukocyte Esterase Rfl 1+ H Urine RBC 0-2 Urine WBC 11-20 H Ur Squamous Epith Cells Few Urine Bacteria 1+ H Urine Casts 0-2 Final Diagnosis (1) contractions: Code(s): O47.00 - False labor before 37 completed weeks of gestation, unspecified trimester Status: Acute
== END 2022-10-06 23:19 | disposition home or self-care (01) ==
PROVIDERS: Admitting Provider Obstetrics & Gynecology; Visit Provider Obstetrics & Gynecology
DX: O47.03 False labor before 37 completed weeks of gestation, third trimester (principal); Z3A.35 35 weeks gestation of pregnancy
CPT/HCPCS: 59025; 81001; 87086; 87088; 96372; A9270; G0378; G0379; J0702

== ENCOUNTER 2022-10-07 17:16 | Outpatient (CLI) | payer OTHER, SELFPAY ==
[2022-10-07] MEDS: BETAMETHASONE SOD PHOS/ACETATE 30 MG/5 ML VIAL 12 MG IM (17:31)
== END 2022-10-07 17:17 | disposition home or self-care (01) ==
LOC: ANHOBOP 17:19
PROVIDERS: Visit Provider Obstetrics & Gynecology
DX: O36.8990 Maternal care for other specified fetal problems, unspecified trimester, not applicable or unspecified (principal); Z3A.00 Weeks of gestation of pregnancy not specified
CPT/HCPCS: 96372; J0702

== ENCOUNTER 2022-10-16 10:24 | Observation (INO) | payer OTHER, SELFPAY ==
[2022-10-16 10:40] VITALS: TEMP 36.9
--- NOTE | 2022-10-18 12:45 | PM.OBTRLD ---
OB - Triage/Final Diagnosis Visit Information Reason for evaluation: threatened labor Comments/Additional reasons for admission: I have assessed the risk for this patient, Toya Eron Gomes, and determined that she would benefit from observation care.
== END 2022-10-16 12:40 | disposition home or self-care (01) ==
PROVIDERS: Admitting Provider Obstetrics & Gynecology; Visit Provider Obstetrics & Gynecology
DX: O47.1 False labor at or after 37 completed weeks of gestation (principal); Z3A.37 37 weeks gestation of pregnancy
CPT/HCPCS: G0378; G0379

== ENCOUNTER 2022-10-25 05:48 | Inpatient (IN) | payer OTHER, SELFPAY ==
[2022-10-25] VITALS (56 sets, daily range): BP systolic 72–126; BP diastolic 39–100; PULSE 51–131; RESP 15–20; TEMP 36.2–36.9; O2SAT 90–100; BMI 41.3
--- NOTE | 2022-10-25 05:48 | LDADM ---
This patient, Toya Gomes, was admitted to Labor/Delivery/Recovery 120 on 10/25/22 at 05:48. Plans for labor, pain management and were discussed with patient. Patient/family oriented to hospital policies and general routines including ID bracelet, bed and alarms, visiting hours, pain management, procedures, bathroom and other care routines, personal items, smoking policy, room service/diet and guest tray routines, infant security routines, and visiting hours. Patient/Family are encouraged to report perceived risks to care and to ask questions if they do not understand what they are told or what they should do. See OBIX for further documentation.
[2022-10-25] MEDS: LACTATED RINGERS 1,000 ML 125 ML IV CONT ×2 (06:38→07:33)
[2022-10-25 06:47] LABS: Basophils Percent Auto 0.2 % (0.2-1.2); Eosinophils Absolute Auto 0.1 K/mm3 (0-0.3); Eosinophils Percent Auto 0.5 % (0-4.4); Hematocrit 34.9 % (37.0-47.0); Hemoglobin 11.3 g/dL (12.0-15.0); Immature Granulocyte Absolute 0.06 K/mm3 (0.00-0.031); Immature Granulocyte Percent A 0.6 % (0-0.5); Lymphocytes Absolute Auto 2.06 K/mm3 (0.9-3.2); Lymphocytes Percent Auto 20.9 % (18.3-44.2); Mean Corpuscular HGB Conc 32.4 g/dl (32-36); Mean Corpuscular Hemoglobin 29.2 pg (26-34); Mean Corpuscular Volume 90.2 fl (80-100); Mean Platelet Volume 10.3 fl (7.4-10.4); Monocytes Absolute Auto 0.7 K/mm3 (0.1-0.6); Monocytes Percent Auto 6.6 % (2.6-8.5); Neutrophils Percent Auto 71.2 % (45.5-73.1); Platelet Count Result 257 k/mm3 (150-375); Red Blood Count 3.87 M/mm3 (4.2-5.4); White Blood Count 9.9 K/mm3 (4.5-10.0)
--- NOTE | 2022-10-25 07:01 | WPDANESEPPF ---
Anes - Initial Pre Proc Eval Date/Time: 10/25/22 07:01 Surgeon: Sohail Holloway MD Pre Op Diagnosis: Contractions Patient Data Age: 37 Gender: F Height: 1.68 m Weight: 116 kg Last Vital Signs Temp 36.3 C L 10/25/22 06:56 O2 Del Method Room Air 10/25/22 06:50 Allergies Allergy/AdvReac Type Severity Reaction Status Date / Time No Known Allergies Allergy Verified 02/27/22 17:29 Home Medications Medication Instructions Recorded Confirmed Type vits 75-iron 28 mg-folic pkg PO 10/07/22 History acid 800 mcg-omega3 440 mg oral pack Laboratory Tests 10/25/22 06:34 WBC 9.9 K/mm3 (4.5-10.0) RBC 3.87 L M/mm3 (4.2-5.4) Hgb 11.3 L g/dL (12.0-15.0) Hct 34.9 L % (37.0-47.0) MCV 90.2 fl (80-100) MCH 29.2 pg (26-34) MCHC 32.4 g/dl (32-36) RDW 14.0 % (11.5-14.5) Plt Count 257 k/mm3 (150-375) MPV 10.3 fl (7.4-10.4) Immature Gran % (Auto) 0.6 H % (0-0.5) Neut % (Auto) 71.2 % (45.5-73.1) Lymph % (Auto) 20.9 % (18.3-44.2) [place] % (Auto) 6.6 % (2.6-8.5) Eos % (Auto) 0.5 % (0-4.4) Baso % (Auto) 0.2 % (0.2-1.2) Lymph # (Auto) 2.06 K/mm3 (0.9-3.2) [place] # (Auto) 0.7 H K/mm3 (0.1-0.6) Eos # (Auto) 0.1 K/mm3 (0-0.3) Baso # (Auto) 0.0 K/mm3 (0.0-0.1) Abs Immat Gran (auto) 0.06 H K/mm3 (0.00-0.031) Absolute Neuts (auto) 7.0 H K/mm3 (1.3-6.7) Absolute Nucleated RBC 0.0 K/mm3 (0.0-0.012) Nucleated RBC % 0.0 % (0.0-0.2) RPR Pending Patient hx anesthesia problems: none Family hx anesthesia problems: none Results Review: All pre-operative results and documents have been reviewed as part of the pre-operative evaluation. [facility] Past Medical History Medical History Fracture of left foot Scoliosis Surgical History Surgical History Fallopian tube abscess cyst drained 2005 H/O section (~03/19/18) History of appendectomy Hx laparoscopic cholecystectomy Hx of arthroscopic knee surgery ROLDAN. Family History Family History Mother Family history of hypercholesterolemia Hypertension Grandparent Family history of glaucoma Cerebrovascular accident Carcinoma of colon Family history of malignant neoplasm of breast Father Diabetes mellitus Social History Social History Smoking status: Never smoker Second hand tobacco smoke exposure: No Alcohol intake: former Alcohol use details: social only presently Substance use: never Lack of Transportation: No Lack of Food: Never True Current Housing: I Have Housing Concerned About Future Housing: No Difficulty Paying Gas/Electric Bills: No Difficulty Paying for Meds: No Currently Unemployed: No Education: Master's Degree or Higher Difficulty w/ Childcare or Family Care: No Living arrangements: with family Occupation/Education: occupation Gender identity (if verbalized by the patient): Female Spiritual care concerns: No Anes - Eval Final PreProcedure Day of Procedure 10/25/22 07:01 Patient weight: morbidly obese Heart: regular rate and rhythm Lungs: clear to auscultation Airway: Mallampati scale class II Neurological: alert and oriented Last oral intake: >/= 8 hours ASA classification: III Emergent: no Anesthetic plan: proceed Anesthesia type and monitoring: regional spinal and standard monitoring Results Review: All pre-operative results and documents have been reviewed as part of the pre-operative evaluation. Informed Consent: The patient's anesthetic plan and its attendant risks and benefits were discussed with the patient/family/POA. Questions were solicited and answers provided to the satisfaction of t
--- NOTE | 2022-10-25 07:34 | PM.IMHP ---
H&P: HPI History of Present Illness Date/Time: 10/25/22 07:34 Chief Complaint: Contractions Narrative: 37 y/o at 38 3/7 weeks with prior x 2, here with contractions. GBS neg. Review of Systems Review of Systems: All systems reviewed & are unremarkable except as noted in HPI and below PMFSH Past Medical History Medical History Fracture of left foot Scoliosis Surgical History Surgical History Fallopian tube abscess cyst drained 2005 H/O section (~03/19/18) History of appendectomy Hx laparoscopic cholecystectomy Hx of arthroscopic knee surgery ROLDAN. Family History Family History Mother Family history of hypercholesterolemia Hypertension Grandparent Family history of glaucoma Cerebrovascular accident Carcinoma of colon Family history of malignant neoplasm of breast Father Diabetes mellitus Social History Social History Smoking status: Never smoker Second hand tobacco smoke exposure: No Alcohol intake: former Alcohol use details: social only presently Substance use: never Lack of Transportation: No Lack of Food: Never True Current Housing: I Have Housing Concerned About Future Housing: No Difficulty Paying Gas/Electric Bills: No Difficulty Paying for Meds: No Currently Unemployed: No Education: Master's Degree or Higher Difficulty w/ Childcare or Family Care: No Living arrangements: with family Occupation/Education: occupation Gender identity (if verbalized by the patient): Female Spiritual care concerns: No Meds Home Medications and Allergies Home Medications Medication Instructions Recorded Confirmed Type vits 75-iron 28 mg-folic pkg PO 10/07/22 History acid 800 mcg-omega3 440 mg oral pack Allergies Allergy/AdvReac Type Severity Reaction Status Date / Time No Known Allergies Allergy Verified 02/27/22 17:29 Vital Signs Vital Signs - 24 hr 10/25/22 06:50 10/25/22 06:56 Temperature 36.3 C L Oxygen Delivery Room Air Exam Const: Orientation/consciousness: patient oriented x3 Other: Well-developed, well-nourished female in no acute distress. Neck: Thyroid: thyroid normal Lymphatic: no lymphadenopathy noted (in neck, axilla or inguinal nodes) Resp: Effort & Inspection: normal respiratory effort Auscultation: clear to auscultation bilaterally Cardio: Rate: regular rate Rhythm: regular rhythm Heart sounds: S1 normal heart sound present and S2 normal heart sound present GI: Other: ABD: Soft, nontender, nondistended, gravid. NST reactive. TOCO: contractions every 4 min. : General: Yes no CVA tenderness Other: Cervix 3/50/-2. Back/Spine/Pelvis: Back: no CVA tenderness Skin: General skin exam: normal color and no rashes or lesions noted Neuro: General: patient oriented x3 Extrem: Other: Extremities: nontender with no edema Psych: Mental Status: mental status grossly normal Affect: normal affect H&P: Results Labs Labs: Short CBC 10/25/22 Range/Units 06:34 WBC 9.9 (4.5-10.0) K/mm3 Hgb 11.3 L (12.0-15.0) g/dL Hct 34.9 L (37.0-47.0) % Plt Count 257 (150-375) k/mm3 Assessment and Plan Assessment and plan (1) H/O section: Onset Date: ~03/19/18 Code(s): Z98.891 - History of uterine scar from previous surgery Status: Acute Assessment and Plan: A: IUP at 38 3/7 weeks with labor, prior . P: She desires repeat . She understands risks of surgery to include risks of anesthesia, risks of pain, infection, bleeding, blood products, thromboembolic phenomena and damage to adjacent structures such as bowel, bladder, ureters, blood vessels and nerves. Ravi
[2022-10-25] MEDS: ceFAZolin 2 GM/D5W 50 ML 2 GM/50 ML BAG IVPB (07:38)
--- NOTE | 2022-10-25 07:38 | WPDHPUPDATE1 ---
History and Physical Update Update Date/Time: 10/25/22 07:38 History and Physical has been reviewed, including an updated exam of the patient. There are NO changes in the patient's condition. Risks, benefits, and alternatives have been discussed and questions answered. Patient agrees to proceed with procedure.
--- NOTE | 2022-10-25 08:29 | PM.OBPRVD ---
OB - Delivery Note Procedure Delivery date: 10/25/22 Procedure: Repeat low transverse delivey Delivery monitor: External FHT and External Uterine Route of delivery: Specimen: Yes (cord blood) Quantitative Blood Loss (ml): 370 Anesthesia type: Spinal Disposition: PACU Complications: None Narrative: Preop Dx: IUP at 38 3/7 weeks, labor, prior Postop Dx: Same Findings: Normal-appearing uterus, left tube and bilateral ovaries. The right Fallopian tube was notable for a 4x5 cm paratubal cyst. Techniques: The patient was taken to the operating room where she was prepared and draped in the usual sterile fashion in dorsal supine position with a leftward tilt. She received cefazolin preoperatively. Spinal anesthesia was found to be adequate. A Pfannenstiel skin incision was made along the previous scar line and was carried through to the underlying layer of the fascia. The fascia was incised in the midline and the incision was extended laterally. The fascia was dissected free of the underlying rectus muscles. The rectus muscles were in the midline. The peritoneum was identified, tented up and entered sharply. The peritoneal incision was extended superiorly and inferiorly with good visualization of the bladder. The bladder blade was placed. The vesicouterine peritoneum was identified, tented up and entered sharply. The incision was extended laterally and the bladder flap was developed. The bladder blade was replaced. The uterus was then incised sharply in a transverse fashion along the lower uterine segment. The incision was extended laterally. The 's head was delivered atraumatically to the sterile field, followed by the body. The nose and mouth were bulb suctioned. After a delay, the cord was clamped and cut. The infant was handed off the field. Cord blood was collected. The placenta was removed manually and was passed off the field. The uterus was exteriorized and cleared of all clots and debris. The uterine incision was reapproximated using 0 Monocryl in a running, locked fashion. Excellent hemostasis resulted as did excellent reapproximation of the normal anatomy. The uterus was returned the abdomen. The pelvis was irrigated copiously with warmed normal saline. Rigorous hemostasis was assured. The fascial layer was reapproximated using 0 Vicryl in a running fashion. The skin was closed with a running, subcuticular stitch of 4 0 Vicryl. Dermaflex was applied externally. Sponge, lap, needle and instrument counts were correct. The patient was taken to the recovery room in stable condition. The went to the nursery in stable condition. I was present and scrubbed the entire procedure. Baby Date of : 10/25/22 Time of : 08:03 Weeks of gestation at delivery: 39 Infant gender: Female Weight (pounds): 7 Weight (ounces): 7 presentation: vertex Placenta delivery description: Manual Removal and Normal Configuration Cord Vessel Description: 3 Vessels and Delayed Cord Clamping score one minute: 8 score five minutes: 9
--- NOTE | 2022-10-25 08:33 | PM.OBDSVD ---
DS: Admitting Diagnosis Discharge Date 10/28/22 Admitting Diagnosis IUP at 38 3/7 weeks Labor Prior x 2 DS: Discharge Diagnosis Discharge Diagnosis (1) Term : Code(s): Z34.90 - Encounter for supervision of normal , unspecified, unspecified trimester Status: Acute (2) delivery delivered: Code(s): O82 - Encounter for delivery without indication Status: Acute OB - DS: Summary OB Procedures : None OB Procedures Intrapartum: OB Procedures: : None Time Spent with Patient Time attestation: Total time spent providing and/or coordinating discharge services: DS: Data Data Completed and Pending Labs on day of discharge: Labs from last 24 hours 10/25/22 06:34 WBC 9.9 RBC 3.87 L Hgb 11.3 L Hct 34.9 L MCV 90.2 MCH 29.2 MCHC 32.4 RDW 14.0 Plt Count 257 MPV 10.3 Immature Gran % (Auto) 0.6 H Neut % (Auto) 71.2 Lymph % (Auto) 20.9 [place] % (Auto) 6.6 Eos % (Auto) 0.5 Baso % (Auto) 0.2 Lymph # (Auto) 2.06 [place] # (Auto) 0.7 H Eos # (Auto) 0.1 Baso # (Auto) 0.0 Abs Immat Gran (auto) 0.06 H Absolute Neuts (auto) 7.0 H Absolute Nucleated RBC 0.0 Nucleated RBC % 0.0 RPR Pending Blood Type O Positive Antibody Screen Negative Discharge Plan Discharge Attending physician on discharge: Sohail Holloway Consulting providers: Ralph Pa; Marilee Stafford Discharging Clinician: Sohail Holloway Patient Disposition: Home, Self-Care Activity: may shower, may drive after 2 weeks and pelvic rest Diet: regular Wound Care Instructions: incision open to air Discharge Instructions: Education: Mom and Baby Guide Given to: Mother Follow-Up: Call your delivering provider's office for an appointment to be seen in: 4 Weeks Mom and baby should come to the [facility] for the follow-up appointment. Appointment Date/Time: Saturday, October 29, 2022 at 11:00 a.m. What to expect at your follow-up visit: Blood Pressure Check Call [phone] if you are unable to keep your appointment time. BREAST CARE: * Wear a snug supportive bra. * For engorgement discomfort: Breast Feeding: * Apply warm moist washcloths * Express milk as needed to relieve engorgement * Wear loose clothing * For sore nipples: * Identify correct latch-on * Apply warm moist washcloths before and after nursing * Air dry nipples after nursing * May apply Lansinoh cream to nipples ABDOMINAL INCISION: (if applicable) * Allow incision to air dry * Do NOT use lotions for powders on your incision * When showering, allow soap and water to run over the incision, but do not wash incision EPISIOTOMY/PERINEAL CARE: * Until bleeding stops, use your jose bottle after urinating * Change your pad frequently throughout the day * You may take sitz baths several times a day (fill your bathtub with warm water and soak for 20 minutes.) Do NOT bathe in the water * No tub baths until seen by your physician - You may shower ACTIVITY: * Rest as much as possible. * Do not exercise or lift anything heavier than your baby (such as laundry or other children.) * Avoid stairs or driving as much as possible. * Do not put anything into the vagina. No douching, tampons, or sexual activity until seen by physician. NOTIFY PHYSICIAN IF YOU HAVE ANY QUESTIONS OR IF ANY OF THE FOLLOWING SYMPTOMS OCCUR: * If your incision becomes red, swollen, or more painful than what you have experienced in the hospital. * If your vaginal bleeding becomes foul smelling. * If your vaginal bleeding becomes more heavy than a period or if your bleeding changes from pink to bright red. However, you may pass an occasional walnut-sized clot once or twice for the first week . * If you experience a sharp, shooting pain in you calves. * If you discov
[2022-10-25 09:44] LABS: Rapid Plasma Reagin Non-Reactive (NonReactive)
[2022-10-25] MEDS: MORPHINE SULFATE INJ (*CRX) 10 MG/ML AMP 3 MG IV PUSH ×2 (09:50→10:57)
[2022-10-25] MEDS: OXYTOCIN 30 UNITS/NS 500 ML 30 UNITS/500 ML BAG 125 UNITS IV CONT (10:03)
--- NOTE | 2022-10-25 11:15 | PC.NURSE ---
Patient transferred to post room #277 via stretcher. Support person present. Oriented to unit, room, information board, rooming in, admission packet and security measures. Patient verbalizes understanding.
[2022-10-25] MEDS: DEXTROSE 5%/0.45% SOD CHL 1,000 ML 125 ML IV CONT ×2 (14:10→21:23)
[2022-10-25] MEDS: KETOROLAC 30 MG/ML VIAL (*BKC) IV PUSH ×2 (15:59→23:48)
[2022-10-25] MEDS: DOCUSATE SODIUM 100 MG CAPSULE PO (16:00)
[2022-10-25] MEDS: ACETAMINOPHEN 325 MG TABLET 650 MG PO (20:35)
[2022-10-26 00:45] VITALS: BP 108/64; PULSE 55; RESP 18; TEMP 36.4; O2SAT 99
[2022-10-26 03:00] VITALS: BP 110/65; PULSE 73; RESP 18; TEMP 36.6; O2SAT 100
[2022-10-26] MEDS: ACETAMINOPHEN 325 MG TABLET 650 MG PO ×3 (03:43→17:07)
[2022-10-26 05:27] LABS: Basophils Percent Auto 0.2 % (0.2-1.2); Eosinophils Absolute Auto 0.1 K/mm3 (0-0.3); Eosinophils Percent Auto 1.2 % (0-4.4); Hematocrit 32.2 % (37.0-47.0); Hemoglobin 10.1 g/dL (12.0-15.0); Immature Granulocyte Absolute 0.06 K/mm3 (0.00-0.031); Immature Granulocyte Percent A 0.6 % (0-0.5); Lymphocytes Absolute Auto 1.08 K/mm3 (0.9-3.2); Lymphocytes Percent Auto 10.1 % (18.3-44.2); Mean Corpuscular HGB Conc 31.4 g/dl (32-36); Mean Corpuscular Hemoglobin 28.9 pg (26-34); Mean Corpuscular Volume 92.3 fl (80-100); Mean Platelet Volume 10.7 fl (7.4-10.4); Monocytes Absolute Auto 0.8 K/mm3 (0.1-0.6); Neutrophils Absolute Auto 8.7 K/mm3 (1.3-6.7); Neutrophils Percent Auto 80.9 % (45.5-73.1); Platelet Count Result 211 k/mm3 (150-375); Red Blood Count 3.49 M/mm3 (4.2-5.4); Red Cell Distribution Width 14.2 % (11.5-14.5); White Blood Count 10.7 K/mm3 (4.5-10.0)
[2022-10-26 07:45] VITALS: BP 113/59; PULSE 56; RESP 18; TEMP 36.6; O2SAT 100
--- NOTE | 2022-10-26 08:53 | PM.OBPNVD ---
OB - PN: Subj Subjective Date/time seen: 10/26/22 08:53 Narrative: Pain OK. Tolerating diet. OB - PN: Obj Data Labs 10/26/22 03:44 Labs: Laboratory Results - last 24 hr 10/25/22 10/26/22 06:34 03:44 WBC 10.7 H RBC 3.49 L Hgb 10.1 L Hct 32.2 L MCV 92.3 MCH 28.9 MCHC 31.4 L RDW 14.2 Plt Count 211 MPV 10.7 H Immature Gran % (Auto) 0.6 H Neut % (Auto) 80.9 H Lymph % (Auto) 10.1 L [place] % (Auto) 7.0 Eos % (Auto) 1.2 Baso % (Auto) 0.2 Lymph # (Auto) 1.08 [place] # (Auto) 0.8 H Eos # (Auto) 0.1 Baso # (Auto) 0.0 Abs Immat Gran (auto) 0.06 H Absolute Neuts (auto) 8.7 H Absolute Nucleated RBC 0.0 Nucleated RBC % 0.0 RPR Non-reactive OB - PN A/P Plan Comments: A: POD#1, doing well. P: Routine care. Exam Narrative: AVSS I/O OK ABD soft, nontender, fundus firm. Incision c/d/i. EXT nontender
[2022-10-26] MEDS: DOCUSATE SODIUM 100 MG CAPSULE PO ×2 (10:30→17:06)
[2022-10-26] MEDS: IBUPROFEN 600 MG TABLET PO ×2 (10:31→17:06)
[2022-10-26] MEDS: MULTIVIT/MIN/PREN/FOL AC/IRON TABLET 1 TAB PO (10:31)
--- NOTE | 2022-10-26 13:40 | WPDANLDPN2 ---
Anes-Prog Note L&D Date/Time: 10/26/22 13:40 Neuro status: Neuro function grossly intact. Vital Signs: Last Vital Signs Temp 36.6 C 10/26/22 07:45 Pulse 56 L 10/26/22 07:45 Resp 18 10/26/22 07:45 BP 113/59 L 10/26/22 07:45 Pulse Ox 100 10/26/22 07:45 O2 Del Method Room Air 10/26/22 03:00 Pain score (VAS): 0 I/O: Intake & Output 10/25/22 10/26/22 10/26/22 23:59 07:59 15:59 Intake Total 1000 2450 240 Output Total 3050 Balance 1000 -600 240 Patient feedback: Patient satisfied with anesthetic care.
--- NOTE | 2022-10-26 13:40 | WPDANLDNPN2 ---
Anes-Prog Note L&D-Neuraxial Date/Time: 10/26/22 13:40 Patient feedback: Patient satisfied with post-operative pain management.
[2022-10-26 18:47] VITALS: BP 114/70; PULSE 70; RESP 18; TEMP 37.1; O2SAT 98
[2022-10-27] MEDS: ACETAMINOPHEN 325 MG TABLET 650 MG PO ×4 (00:16→22:35)
[2022-10-27] MEDS: IBUPROFEN 600 MG TABLET PO ×4 (00:16→22:36)
[2022-10-27 07:45] VITALS: BP 123/71; PULSE 70; RESP 18; TEMP 36.6; O2SAT 100
[2022-10-27] MEDS: DOCUSATE SODIUM 100 MG CAPSULE PO ×2 (08:46→15:59)
[2022-10-27] MEDS: MULTIVIT/MIN/PREN/FOL AC/IRON TABLET 1 TAB PO (08:46)
--- NOTE | 2022-10-27 11:15 | PM.OBPNVD ---
OB - PN: Subj Subjective Date/time seen: 10/27/22 11:15 Patient comments: no complaints, pain well controlled, incisional pain, tolerating diet and flatus present OB - PN: Obj Data Labs 10/26/22 03:44 OB - PN A/P Plan day: 2 Plan: routine care Comments: POD#2 LTCS - no problems, Time Spent With Patient Time: Total time spent is greater than 50% in coordination of care (as documented) at patient's floor/unit and/or counseling patient: Exam Const: General: comfortable, no acute distress and alert Resp: Effort & Inspection: normal respiratory effort Auscultation: no crackles, no rales and no rhonchi Cardio: Rate: regular rate Heart sounds: no click, no murmurs and no rubs GI: Inspection: non-distended GI Palp: No Tenderness to palpation present (GI) Auscultation: normal bowel sounds Other: Incision - CDI Extrem: General: normal to inspection, no pedal edema and no calf tenderness
--- NOTE | 2022-10-27 13:30 | PC.NURSE ---
3229 Introductions were made, then consulted with patient to assess needs related to . Mother led the conversation with her?plans to feed?her and the?experience so far. Per mother baby had been to breast off and on but she is mostly pumping and bottle feeding the baby breast milk. Mother has a history of over supply and mastitis with her last two babies, with her last baby she pumped for maybe 5 months and had enough to feed her baby for a year. She is concerned about over supply and mastitis again with this baby, she had been using the breast pump every 6-7 hours and pumping each breast for 20+ minutes and pumping 100+ mls at each session. This RN is going to consult with TAYO Tena, and see if she can consult with mother later today. Mother voiced understanding of information and will call if there is a request for assistance. Reported to the primary RN. 724Darian Samson RN CLC, to mothers room for consult. She encouraged the patient to pump each breast for only 15 minutes every 3-4 hours and to use ice packs to breasts. Mother voiced understanding of information and will call if there is a request for assistance. Reported to the primary RN.
[2022-10-27 21:00] VITALS: BP 127/72; PULSE 86; RESP 18; TEMP 36.8; O2SAT 100; O2SAT 98
[2022-10-28] MEDS: ACETAMINOPHEN 325 MG TABLET 650 MG PO (04:10)
[2022-10-28] MEDS: IBUPROFEN 600 MG TABLET PO (04:10)
[2022-10-28 08:00] VITALS: PULSE 60; RESP 16; O2SAT 100
[2022-10-28 08:25] VITALS: BP 95/55; PULSE 60; RESP 16; TEMP 36.8; O2SAT 100
--- NOTE | 2022-10-28 09:09 | PM.OBPNVD ---
OB - PN: Subj Subjective Date/time seen: 10/28/22 09:09 Patient comments: no complaints, pain well controlled, incisional pain, tolerating diet and flatus present OB - PN: Obj Data Labs 10/26/22 03:44 OB - PN A/P Plan day: 2 Plan: routine care Comments: POD#2 LTCS - no problems, Time Spent With Patient Time: Total time spent is greater than 50% in coordination of care (as documented) at patient's floor/unit and/or counseling patient: Exam Const: General: comfortable, no acute distress and alert Resp: Effort & Inspection: normal respiratory effort Auscultation: no crackles, no rales and no rhonchi Cardio: Rate: regular rate Heart sounds: no click, no murmurs and no rubs GI: Inspection: non-distended GI Palp: No Tenderness to palpation present (GI) Auscultation: normal bowel sounds Other: Incision - CDI Extrem: General: normal to inspection, no pedal edema and no calf tenderness
[2022-10-28] MEDS: MULTIVIT/MIN/PREN/FOL AC/IRON TABLET 1 TAB PO (09:30)
[2022-10-28] MEDS: DOCUSATE SODIUM 100 MG CAPSULE PO (09:30)
--- NOTE | 2022-10-28 12:11 | PC.NURSE ---
0900 Mother led the conversation with her experience and plan to feed her so far and her ability to independently latch infant optimally without discomfort. Mom states wishes to continue with the current plan of attempting to breastfeed . Reminded parents to use good handwashing technique to prevent infection. Mother is feeding appropriately for growth of and understands stimulating infant to eat if needed. Infant has had appropriate feedings in the last 24 hours meets the outcomes for weight, output and jaundice at this time. Mother states she is confident to continue effectively her infant at home, when to call for assistance and denies any additional assistance or education at this time. Reinforced understanding of milk production, transition of milk, signs of adequate intake, transition of stool, prevention/relief of engorgement, responsive watching for feeding cues, the different methods of stimulating to breastfeed 2-3 hours after the start of the last feeding, community resources, medication information reviewed per [facility] and when to call a provider using the resource of the mom and baby guide/[facility] website. Mother voiced understanding of the education shared. Reported to the primary RN.
[2022-10-29 11:12] VITALS: BP 118/67; PULSE 79; RESP 18; TEMP 36.6; O2SAT 99
== END 2022-10-28 13:25 | disposition home or self-care (01) | DRG 788 ==
LOC: ANHLDR 08:34 → ANHOB2 10-28 10:27 → ANHLDR 10-29 09:58 → ANHOB2 10-29 09:58
PROVIDERS: Admitting Provider Obstetrics & Gynecology; Visit Provider Obstetrics & Gynecology
PROC: 10D00Z1 Extraction of Products of Conception, Low, Open Approach (ICD-10-PCS; CPT 59514; principal; 2022-10-25 07:30)
DX: O34.211 Maternal care for low transverse scar from previous cesarean delivery (principal); Z37.0 Single live birth; Z3A.38 38 weeks gestation of pregnancy; O99.892 Other specified diseases and conditions complicating childbirth; N83.8 Other noninflammatory disorders of ovary, fallopian tube and broad ligament
CPT/HCPCS: 36415; 85025; 86592; 86850; 86900; 86901; A9270; J0690; J1885; J2270; J2274; J2590; J7120

== ENCOUNTER 2022-12-18 06:29 | Observation (INO) | payer OTHER, SELFPAY ==
[2022-12-18] VITALS (13 sets, daily range): BP systolic 106–190; BP diastolic 60–92; PULSE 36–99; RESP 16–95; TEMP 36.1–36.5; O2SAT 23–100; BMI 37.5
--- NOTE | ~2022-12-18 | CT_ITS ---
EXAMINATION: CTA chest PE protocol DATE: 12/19/2022 15:14 INDICATION: elevated d dimer TECHNIQUE: Computed tomography angiography (CTA) of the chest was performed with 100 mL Omnipaque-350 intravenous contrast timed to evaluate the pulmonary arteries. Coronal maximum intensity projection 3D-reconstructions were created by the technologist. The dose-length product (DLP) was 666.27 mGy-cm. Automated exposure control and iterative reconstruction technique were employed. COMPARISON: None. FINDINGS: Lung parenchyma and airways: Scattered tree-in-bud opacities, most evident in the right lower lobe. B ibasilar scar/atelectasis.. Pleura: Unremarkable. Thoracic inlet, axillae and chest wall: Unremarkable. Thoracic aorta: Normal. Mediastinum: Normal. Heart and pericardium: Normal. Coronary artery calcifications: . Upper abdomen: Status post cholecystectomy. Left upper quadrant splenule. Bones: No acute osseous finding. Thoracic scoliosis. Pulmonary arteries: Study quality: Adequate. No pulmonary emboli detected. IMPRESSION: No CT evidence of acute pulmonary embolus. Scattered tree-in-bud opacities, most evident in the right lower lobe, as can be seen with atypical i nfection (MAC, TB, fungal), ABPA, airways disease (CF, bronchiectasis), and aspiration. Reviewed, dictated and finalized at location K. IMPRESSION: No CT evidence of acute pulmonary embolus. Scattered tree-in-bud opacities, most evident in the right lower lobe, as can b e seen with atypical infection (MAC, TB, fungal), ABPA, airways disease (CF, br onchiectasis), and aspiration.
--- NOTE | ~2022-12-18 | XR_ITS ---
XR chest 2V DATE: 12/18/2022 07:05 INDICATION: Chest pain, shortness of breath. Recent bronchitis. Hypertension. TECHNIQUE: PA and lateral views COMPARISON: 04/20/2019 PA and lateral chest FINDINGS: Heart size is within normal limits. No hilar or mediastinal enlargement. No pulmonary infiltrate or consolidation, pulmonary vascular congestion or pneumothorax. Slight blunt ing of the costophrenic angles may been present minimal pleural effusions. Surgical clips, right upper quadrant, likely due to cholecystectomy There is mild levoscoliosis of the upper thoracic spine and moderate dextroscoliosis of the lower tho racic spine. IMPRESSION: No active cardiopulmonary disease Possible minimal pleural effusions Status post cholecystectomy Reviewed, dictated and finalized at location A.
--- NOTE | 2022-12-18 06:34 | ECG_ITS ---
Measurements Intervals [place] Rate: 38 P: 48 NC: 146 QRS: -3 QRSD: 114 T: 19 QT: 494 QTc: 393 Interpretive Statements SLOW SINUS BRADYCARDIA INCOMPLETE RIGHT BUNDLE BRANCH BLOCK ABNORMAL ECG NO PREVIOUS ECG AVAILABLE FOR COMPARISON Electronically Signed On 12-18-2022 7:02:10 CDT by Roman Thompson D.O.
[2022-12-18 07:41] LABS: Basophils Percent Auto 0.2 % (0.2-1.2); Eosinophils Percent Auto 0.2 % (0-4.4); Hematocrit 38.9 % (37.0-47.0); Hemoglobin 12.1 g/dL (12.0-15.0); Immature Granulocyte Absolute 0.06 K/mm3 (0.00-0.031); Immature Granulocyte Percent A 0.6 % (0-0.5); Lymphocytes Absolute Auto 1.85 K/mm3 (0.9-3.2); Lymphocytes Percent Auto 19.2 % (18.3-44.2); Mean Corpuscular HGB Conc 31.1 g/dl (32-36); Mean Corpuscular Hemoglobin 27.6 pg (26-34); Mean Corpuscular Volume 88.6 fl (80-100); Mean Platelet Volume 9.7 fl (7.4-10.4); Monocytes Absolute Auto 0.9 K/mm3 (0.1-0.6); Monocytes Percent Auto 9.2 % (2.6-8.5); Neutrophils Absolute Auto 6.8 K/mm3 (1.3-6.7); Neutrophils Percent Auto 70.6 % (45.5-73.1); Platelet Count Result 375 k/mm3 (150-375); Red Blood Count 4.39 M/mm3 (4.2-5.4); Red Cell Distribution Width 13.9 % (11.5-14.5); White Blood Count 9.6 K/mm3 (4.5-10.0)
[2022-12-18 07:51] LABS: Alanine Aminotransferase 56 U/L (6-35); Alkaline Phosphatase 119 U/L (38-126); Anion Gap 12 mmol/L (8-16); Aspartate Amino Transferase 68 U/L (14-36); Bilirubin,Total 0.5 mg/dL (0.2-1.3); Blood Urea Nitrogen 14 mg/dL (7-17); Calcium 8.9 mg/dL (8.4-10.2); Carbon Dioxide 17 mmol/L (22-30); Chloride 108 mmol/L (98-107); Estimated CRCL calculation 136 ml/min; Estimated Glomerular Filt Rate > 60; Glucose 95 mg/dL (65-110); Lipase 98 U/L (23-300); Sodium 137 mmol/L (137-145)
[2022-12-18] MEDS: fentaNYL CITRATE INJ (*CRX) 100 MCG/2 ML VIAL 50 MCG IV PUSH (08:01)
[2022-12-18 08:03] LABS: Troponin I < 0.012 ng/mL (0.000-0.034)
[2022-12-18 08:10] LABS: Appearance Urine Clear (Clear); Bilirubin Urine Negative (Negative); Blood Urine Negative (Negative); Color Urine Yellow (Yellow); Glucose Urine UA Negative (Negative); Ketones Urine Negative (Negative); Leukocyte Esterase Ur Negative LEU/UL (Negative); Nitrate Urine Negative (Negative); Protein Urine Negative (Negative); Specific Grav Ur 1.008 (1.001-1.035); Urobilinogen Urine 0.2 mg/dL (<2.0)
[2022-12-18 08:14] LABS: Prothrombin Time 13.4 Seconds (11.1-14.7)
[2022-12-18 08:15] LABS: Partial Thromboplastin Time 24.9 SECONDS (22.3-36.8)
[2022-12-18 08:23] LABS: NT Pro B Type Natriuretic Pept 546 pg/mL (19.9-100)
--- NOTE | 2022-12-18 09:16 | ED.GENADULT ---
HPI - General Adult General Chief complaint: Upper Respiratory Infection Stated complaint: cp, headache Time Seen by Provider: 12/18/22 07:32 History of Present Illness HPI narrative: Patient is a 37-year-old female who presents ER with multiple issues. Patient is 7 weeks . Earlier this week she began having some shortness of breath. She was seen at an urgent care and placed on steroids because they thought she had bronchitis. Patient reports she has general fatigue and shortness of breath when exerting herself. She started having some aching right-sided chest pain earlier today. No fevers or chills or sweats. No hemoptysis. No leg swelling. No orthopnea. She had no complications with her . She has also developed mild throbbing headache bilaterally. No visual changes. No focal numbness or weakness to an arm or leg. No slurred speech. Patient has had no dizziness or syncope. Related Data Home Medications Medication Instructions Recorded Confirmed vits 75-iron 28 mg-folic pkg PO 10/07/22 acid 800 mcg-omega3 440 mg oral pack Allergies Allergy/AdvReac Type Severity Reaction Status Date / Time No Known Allergies Allergy Verified 02/27/22 17:29 Review of Systems Review of Systems: All systems reviewed & are unremarkable except as noted in HPI and below Constitutional: Constitutional: Denies chills, Denies fatigue and Denies fever(s) ENT: Denies nasal congestion and Denies sore throat Cardiovascular: Cardiovascular: Reports chest pain, Denies rapid heart rate, Denies radiating jaw, neck or arm pain and Reports slow heart rate Respiratory: Respiratory: Denies cough, Reports dyspnea and Denies wheezing Gastrointestinal: Gastrointestinal: Denies abdominal pain, Denies diarrhea, Denies nausea and Denies vomiting Genitourinary: Genitourinary: Reports no additional female genitourinary complaints Neurologic: Denies dizziness, Denies syncope, Reports headache(s), Denies focal weakness and Denies numbness [facility] Past Medical History Medical History Fracture of left foot Scoliosis Surgical History Surgical History Fallopian tube abscess cyst drained 2005 H/O section (~03/19/18) History of appendectomy Hx laparoscopic cholecystectomy Hx of arthroscopic knee surgery ROLDAN. Family History Family History Mother Family history of hypercholesterolemia Hypertension Grandparent Family history of glaucoma Cerebrovascular accident Carcinoma of colon Family history of malignant neoplasm of breast Father Diabetes mellitus Social History Social History Smoking status: Never smoker Second hand tobacco smoke exposure: No Alcohol intake: former Alcohol use details: social only presently Substance use: never Lack of Transportation: No Lack of Food: Never True Current Housing: I Have Housing Concerned About Future Housing: No Difficulty Paying Gas/Electric Bills: No Difficulty Paying for Meds: No Currently Unemployed: No Education: Master's Degree or Higher Difficulty w/ Childcare or Family Care: No Living arrangements: with family Occupation/Education: occupation Gender identity (if verbalized by the patient): Female Spiritual care concerns: No Exam Narrative: GENERAL: Well-appearing, well-nourished, and in no acute distress. HEAD: Normocephalic, atraumatic. EYES: PERRL and EOMI. ENT: Mucous membranes moist. CHEST: Clear to auscultation. No respiratory distress. HEART: Bradycardic and regular. Normal peripheral pulses. ABDOMEN: Soft, nontender, nondistended. EXTREMITIES: Normal range of motion. No edema. SKIN: Warm, dry, no rash. NEURO: Alert and oriented x3. PSYCH: Normal mood and affect.
[2022-12-18 09:22] LABS: Add Urine Microscopic? NO
[2022-12-18] MEDS: NIFEdipine 10 MG CAPSULE PO ×2 (09:30→15:31)
[2022-12-18 09:44] LABS: Troponin I < 0.012 ng/mL (0.000-0.034)
--- NOTE | 2022-12-18 10:05 | ECG_ITS ---
Measurements Intervals [place] Rate: 84 P: 48 [place]: 149 QRS: -9 QRSD: 116 T: 7 QT: 386 QTc: 459 Interpretive Statements SINUS RHYTHM INCOMPLETE RIGHT BUNDLE BRANCH BLOCK BORDERLINE T WAVE ABNORMALITY- ANT/INF LEADS BORDERLINE ECG COMPARED TO ECG 12/18/2022 06:36:41 SINUS RHYTHM NOW PRESENT Electronically Signed On 12-18-2022 16:32:35 CDT by Roman Thompson D.O.
--- NOTE | 2022-12-18 11:28 | ADMGEN ---
This patient, Toya Gomes, was admitted to 2 Medical Room 260-01 at 1045. Patient/family oriented to hospital policies and general routines including ID bracelet, bed and alarms, visiting hours, pain management, procedures, bathroom and other care routines, personal items, smoking policy, room service/diet, and visiting hours. Information on how to activate the Rapid Response Team has been discussed. Patient/Family are encouraged to report perceived risks to care and to ask questions if they do not understand what they are told or what they should do.
--- NOTE | 2022-12-18 11:40 | PM.CNCAR ---
Assessment and Plan Assessment and plan (1) Bradycardia: Code(s): R00.1 - Bradycardia, unspecified Status: Acute Assessment and Plan: EKG showed sinus bradycardia with incomplete right bundle branch block. Patient denies dizziness, syncope. Recommend observation at this time. Obtain echocardiogram (2) hypertension: Code(s): O16.5 - Unspecified maternal hypertension, complicating the puerperium Status: Acute Assessment and Plan: Patient's blood pressure has been high in the last 2-3 days. She is getting steroids for presumptive diagnosis of bronchitis. I doubt that the patient has hypertension and I believe it could be related to steroids. Blood pressure much improved after receiving nifedipine. Recommend observation. Obtain echo (3) Shortness of breath: Code(s): R06.02 - Shortness of breath Status: Acute Assessment and Plan: Patient has been having cough, shortness of breath for few days. Some kind of viral infection in her home. Recommend to test for COVID and viral panel. Obtain echocardiogram to rule out CHF History of Present Illness History of Present Illness Consult date/time: Date of service 12/18/22 11:40 Requesting physician: Cricket Gaona MD Consult reason: Other (Bradycardia) Reason For Visit: htn,bradycardia Narrative: Patient is a 37-year-old female who presents ER with multiple issues.? Patient is 7 weeks .? Apparently patient visited urgent care earlier this week because of shortness of breath and she was given a presumptive diagnosis of bronchitis and started on steroids. However she developed progressive general fatigue and dyspnea on exertion. .? She started having some aching right-sided chest pain earlier today.? No fevers or chills or sweats.? No hemoptysis.? No leg swelling.? No orthopnea.? She had no complications with her .? She has also developed mild throbbing headache bilaterally.? No visual changes.? No focal numbness or weakness to an arm or leg.? No slurred speech.? Patient has had no dizziness or syncope. Initial blood pressure 190/90 and apparently given a dosage of nifedipine and currently her blood pressure systolic 106 She woke up at night because of the right upper quadrant pain that was EKG and tender to touch. She checked her watch and noticed low heart rate. Heart rate usually is not low. Then she went back to sleep and then she woke up with pain across the upper abdomen and lower part of chest that was dull. She is still feeling short of breath. Not coughing much. She states that runny nose and bug going on at home with her kids. Currently heart rates 50s. Occasional PVCs noted on telemetry. Patient appears to be very comfortable at this time. EKG reviewed and as myself, sinus bradycardia with incomplete right bundle branch block however repeat EKG showed heart rate increased to 80 beats per minute. Normal CBC, normal electrolytes and creatinine on, brain atretic peptide mildly elevated at 546, mild elevation of the liver enzymes. Chest x-ray which was analyzed and reviewed myself overall unremarkable except for maybe mild small pleural effusion. Review of Systems Constitutional: Constitutional: Denies chills, Denies fever(s) and Denies poor appetite Eyes: Eyes: Denies eye discharge, Denies loss of vision and Denies eye pain ENT: Denies dizziness, Denies epistaxis, Denies nasal congestion and Denies sore throat Cardiovascular: Cardiovascular: Denies chest pain, Denies syncope, Denies pedal edema, Denies leg edema, Denies palpitations, Reports dyspnea, Reports dyspnea on exertion and Denies orthopnea Respiratory: Respiratory: Reports cough, Reports dyspnea, Denies dyspnea on exertion and Denies wheezing Gastrointestinal: Gastrointestinal: Reports abdominal pain (Right upper quadrant pain), Denies diarrhea, Denies nausea and Denies vomiting Genitourinary: Genitourinary:
[2022-12-18 12:56] LABS: Troponin I < 0.012 ng/mL (0.000-0.034)
[2022-12-18 13:11] LABS: Influenza A QL RT-PCR Negative (Negative); Influenza B QL RT-PCR Negative (Negative); SARS-CoV-2 RNA PCR Negative (Negative)
--- NOTE | 2022-12-18 13:31 | ECHO_ITS ---
Patient Info Name: Toya Gomes Age: 37 years : 1985 Gender: Female Ht: 66 in Wt: 232 lbs BSA: 2.26 m2 HR: 40 bpm BP: 106 / 64 mmHg Technical Quality: Fair Exam Date: 12/18/2022 1:48 PM Exam Location: [facility] Pulmonary Exam Room: 260 Patient Status: Inpatient Admit Date: 12/18/2022 Staff Ordering Physician: Cricket Gaona MD Desk Lieutenant: Charleen Tam RDCS Attending Provider: Rafael Marks MD Referring Physician: Jimenez RINCON; Exam Type: CA echo doppler color flow Study Info Indications - bradycardia RBBB Complete two-dimensional, color flow and Doppler transthoracic echocardiogram is performed. Summary 1. Complete two-dimensional, color flow and Doppler transthoracic echocardiogram is performed. 2. Left ventricular systolic function is normal, estimated at 55-60%. 3. Left ventricular chamber dimension is normal. 4. The left ventricular diastolic function is normal. 5. There is trace mitral valve regurgitation. 6. There is trace tricuspid valve regurgitation. 7. No pulmonary hypertension, estimated pulmonary arterial systolic pressure is 29 mmHg. 8. There is mild pulmonic regurgitation. Left Ventricle Left ventricular chamber dimension is normal. Left ventricular systolic function is normal, estimated at 55-60%. There is no increased left ventricular wall thickness. Left ventricular septal wall motion is normal. The left ventricular diastolic function is normal. Right Ventricle Right ventricular chamber dimension is normal. Right ventricular systolic function is normal. Left Atria Left atrial chamber dimension is normal. Right Atria Right atrial chamber dimension is normal. Atrial Septum Intact interatrial septum visualized by color flow imaging. Aortic Valve The aortic valve is trileaflet. There is no aortic valve sclerosis. There is no aortic valve stenosis. There is no aortic valve regurgitation. Pulmonic Valve The pulmonic valve is normal. There is no pulmonic valve stenosis. There is mild pulmonic regurgitation. Mitral Valve The mitral valve has normal leaflets. There is no mitral valve stenosis. There is trace mitral valve regurgitation. Tricuspid Valve The tricuspid valve leaflets are normal. There is no significant tricuspid valve stenosis. There is trace tricuspid valve regurgitation. No pulmonary hypertension, estimated pulmonary arterial systolic pressure is 29 mmHg. Pericardium/Pleural The pericardium appears normal. There is no pericardial effusion. Inferior Vena Cava Normal inferior vena cava with >50% collapse upon inspiration consistent with Empty right atrial pressure, 10 mmHg. Aorta The aortic root size at the sinus of Valsalva is normal. The prox ascending aorta size is normal. Left Ventricular Outflow Tract Name Value Normal LVOT 2D LVOT Diameter 2.1 cm LVOT Doppler LVOT Peak Gradient 5 mmHg LVOT Mean Gradient 3 mmHg LVOT VTI 30 cm LVOT VTI/AV VTI Ratio 0.9 LVOT Stroke Volume 99 ml LVOT CO 15.5 l/min
--- NOTE | 2022-12-18 13:40 | WPDCN ---
Assessment and Plan Assessment and plan (1) Bradycardia: Code(s): R00.1 - Bradycardia, unspecified Status: Acute Assessment and Plan: Patient's smart watch alerted her to the fact that her heart rate was in the upper 30s at around 02:00 as per HPI. This has occurred on a couple of occasions previously, typically at nighttime, though it is usually only transient. She is asymptomatic with this with no feelings of dizziness, lightheadedness, or syncope. She denies concerns for sleep apnea. Blood pressures have been stable and fact were high on arrival. Continue telemetry. TSH within normal limits. Echocardiogram ordered. Cardiology consulted. (2) hypertension: Code(s): O16.5 - Unspecified maternal hypertension, complicating the puerperium Status: Acute Assessment and Plan: Blood pressure was as high as 190 systolic in the ED. She received nifedipine 10 mg p.o. x1 in her blood pressure has since normalized. She has never had high blood pressures in the past. I am wondering if this may be related to the steroids that she was started on. Hold scheduled doses of nifedipine for now and continue to monitor. Prednisone has been discontinued. (3) Upper respiratory infection: Code(s): J06.9 - Acute upper respiratory infection, unspecified Status: Acute Assessment and Plan: Patient reports upper respiratory symptoms for the last week or so, improving on amoxicillin. She has been taking prednisone though she has no wheezing on exam and that will be discontinued. Pleuritic pain may very well be related to viral URI (COVID negative) however with exertional dyspnea and bradycardia it may be prudent to rule out PE. D-dimer ordered and if elevated she will need a chest CTA. Plan Thank you for allowing us to participate in this patient's care. Please do not hesitate to contact us with any questions. HPI Data of Consult Date/Time: 12/18/22 13:40 Requesting Physician: Rafael Reid MD Consult Narrative Reason for consult: High blood pressure. Narrative: This is a 37-year-old female who was admitted through the emergency department earlier today for hypertension and bradycardia after presenting with multiple complaints including chest pressure, shortness of breath, headache, and elevated blood pressures. The patient provides the following history. She is 7 weeks and reports a pretty uneventful . The last several weeks however she has been plagued with illnesses including [id number] disease in mid November and more recently she has developed URI symptoms to include cough productive of green phlegm, wheezing, chills, and shortness of breath with exertion. She works at [employer] and was seen at [facility] department on Tuesday at which time she was given a nebulizer and started on amoxicillin and prednisone. This morning she was awakened from sleep at about 02:00 with right-sided pleuritic pain and pressure-like discomfort around the bra line. She was able to fall back asleep and got up about an hour and a half later to pump. She was not having any significant discomfort at that time. Around that same time her smart watch alert her to the fact that her heart rate was low which it has done a couple of times in the past however her heart rate was persistently in the upper 30s to low 40s since that time. She was not feeling lightheaded or dizzy and decided to check her blood pressure and heart rate on a monitor she has at home. The machine corroborated her low heart rate and blood pressure was quite a bit higher than it is normally the upper 140 systolic. She then decided come in for evaluation. In the ED or blood pressure was as high as 190/92 and her heart rate was as low as 37. She received 10 mg p.o. nifedipine and her blood pressures have been well within normal limits since that time. Her labs were pretty unremarkable with the only outlier is being a pro
[2022-12-18 14:47] LABS: Anion Gap 8 mmol/L (8-16); Blood Urea Nitrogen 11 mg/dL (7-17); Calcium 8.7 mg/dL (8.4-10.2); Carbon Dioxide 24 mmol/L (22-30); Chloride 106 mmol/L (98-107); Estimated CRCL calculation 136 ml/min; Estimated Glomerular Filt Rate > 60; Glucose 80 mg/dL (65-110); Magnesium 1.9 mg/dL (1.6-2.3); Potassium 3.5 mmol/L (3.4-5.0); Sodium 138 mmol/L (137-145)
[2022-12-18] MEDS: ACETAMINOPHEN 325 MG TABLET 650 MG PO ×2 (15:33→20:06)
[2022-12-18] MEDS: MULTIVIT/MIN/PREN/FOL AC/IRON TABLET 1 TAB BY MOUTH (18:39)
[2022-12-18] MEDS: AMOXICILLIN/CLAVULANATE K 875-125 MG TAB 1 TABLET PO (20:06)
[2022-12-19] VITALS (9 sets, daily range): BP systolic 111–138; BP diastolic 69–80; PULSE 58–86; RESP 16–17; TEMP 36.5–36.6; O2SAT 96
--- NOTE | 2022-12-19 06:52 | PM.IMHP ---
H&P: HPI History of Present Illness Date/Time: 12/19/22 06:52 Chief Complaint: Shortness of breath Narrative: 37-year-old female 7 weeks was admitted through the ER with the bradycardia elevated blood pressures. Workup appeared to be outside the range preeclampsia. She received 2 doses of Procardia to which her blood pressure responded. 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 EKG sincerely right bundle branch is resolved regular. Echocardiogram is pending patient has comfortably PMFSH Past Medical History Medical History Scoliosis Surgical History Surgical History History of appendectomy History of arthroscopy of both knees History of section 03/19/2018, 10/25/2022. History of laparoscopic cholecystectomy History of laparoscopy (2005) Fallopian tube cyst drained. Family History Family History Mother Family history of hypercholesterolemia Hypertension Grandparent Family history of glaucoma Cerebrovascular accident Carcinoma of colon Family history of malignant neoplasm of breast Father Diabetes mellitus Social History Social History Social History: Surrogate medical decision maker: Wilver Eliseo, spouse. Code status: Full code. Smoking status: Never smoker Second hand tobacco smoke exposure: No Alcohol intake: never Substance use: never Lack of Transportation: No Lack of Food: Never True Current Housing: I Have Housing Concerned About Future Housing: No Difficulty Paying Gas/Electric Bills: No Difficulty Paying for Meds: No Currently Unemployed: No Education: Master's Degree or Higher Difficulty w/ Childcare or Family Care: No Living arrangements: with family Additional living arrangements comments: Lives with spouse and 3 young children (4, 2, 7 weeks). Occupation/Education: occupation Additional occupation/education comments: [employer] department. Spiritual care concerns: No Meds Home Medications and Allergies Home Medications Medication Instructions Recorded Confirmed Type vits 75-iron 28 mg-folic See Rx Instructions .Route .COMPLEX 10/07/22 12/18/22 History acid 800 mcg-omega3 440 mg oral pack ibuprofen 600 mg tablet 600 mg PO Q6H PRN cramps #30 tabs 10/25/22 12/18/22 Rx amoxicillin 875 mg-potassium 1 tablet PO BID 12/18/22 12/18/22 History clavulanate 125 mg tablet prednisone 5 mg tablet 5 mg PO BID 12/18/22 12/18/22 History Allergies Allergy/AdvReac Type Severity Reaction Status Date / Time No Known Allergies Allergy Verified 12/18/22 11:41 Vital Signs Vital Signs - 24 hr 12/18/22 07:33 12/18/22 08:55 12/18/22 09:32 Temperature Pulse Rate 40 L 37 L 40 L Respiratory Rate 18 18 24 H Blood Pressure 190/92 H 173/87 H 183/91 H Pulse Oximetry 97 99 100 Oxygen Delivery 12/18/22 10:05 12/18/22 10:29 12/18/22 11:00 Temperature 97.3 F L Pulse Rate 99 49 L 44 L Respiratory Rate 95 H 21 H 24 H Blood Pressure 117/60 117/63 106/64 Pulse Oximetry 23 L 95 94 Oxygen Delivery 12/18/22 11:30 12/18/22 12:00 12/18/22 15:31 Temperature Pulse Rate 36 L 68 Respiratory Rate Blood Pressure 135/79 Pulse Oximetry 95 Oxygen Delivery Room Air 12/18/22 16:00 12/18/22 20:00 12/18/22 21:42 Temperature 97.7 F Pulse Rate 52 L 60 Respiratory Rate 16 Blood Pressure 127/71 Pulse Oximetry 96 Oxygen Delivery Room Air 12/18/22 23:33 12/18/22 20:00 12/19/22 04:16 Temperature 97.8 F Pulse Rate 60 76 Respiratory Rate 16 Blood Pressure 111/69 Pulse Oximetry 96 96 Oxygen Delivery Room Air 12/19/22 00:00 12/19/22 04:
[2022-12-19] MEDS: AMOXICILLIN/CLAVULANATE K 875-125 MG TAB 1 TABLET PO ×2 (09:39→20:38)
[2022-12-19] MEDS: MULTIVIT/MIN/PREN/FOL AC/IRON TABLET 1 TAB BY MOUTH (09:39)
--- NOTE | 2022-12-19 10:00 | PM.PNCARD ---
Progress Note: A&P Assessment and Plan (1) Bradycardia: Code(s): R00.1 - Bradycardia, unspecified Status: Acute Assessment and Plan: EKG showed sinus bradycardia with incomplete right bundle branch block. Patient denies dizziness, syncope. Echocardiogram looks unremarkable. This is asymptomatic bradycardia. It was noticed that it is mainly during sleeping hours. Currently she is awake and heart rate 65-70 beats per minute. TSH normal. Also on telemetry noticed during sleeping hours PVCs. Wonder if patient has sleep apnea. No PVCs noted during daytime. We will arrange for outpatient follow-up (2) hypertension: Code(s): O16.5 - Unspecified maternal hypertension, complicating the puerperium Status: Acute Assessment and Plan: Patient's blood pressure has been high in the last 2-3 days. She is getting steroids for presumptive diagnosis of bronchitis. I doubt that the patient has hypertension and I believe it could be related to steroids. Echocardiogram does not show LVH. Blood pressure is controlled without medications at this time.. Recommend observation and keep home diary of blood pressure. Avoid salt (3) Shortness of breath: Code(s): R06.02 - Shortness of breath Status: Acute Assessment and Plan: Patient has been having cough, shortness of breath for few days. Some kind of viral infection in her home. Viral panel negative. She does have congestion in her nose test this morning. Echocardiogram shows normal LV systolic and Diastolic function no significant valvular abnormalities. Likely related to a virus infection. Not suspecting pulmonary embolism given low heart rate, absence of hypoxia. Subjective Date/time seen: Date of service 12/19/22 10:00 Interval history: Date of service 12/19/2022-on telemetry and during sleeping hours she does have sometimes bigeminy with isolated PVCs. No ventricular tachycardia. This morning patient feels congested in her nose. No significant shortness of breath or chest pain. Heart rates 60 to 70 beats per minute. on bedside. Review of Systems Constitutional: Constitutional: Denies chills, Denies fever(s) and Denies poor appetite Eyes: Eyes: Denies eye discharge, Denies loss of vision, Denies eye pain and Denies photophobia ENT: Denies dizziness, Denies epistaxis, Denies nasal congestion and Denies sore throat Cardiovascular: Cardiovascular: Denies chest pain, Denies syncope, Denies pedal edema, Denies leg edema, Denies palpitations, Reports dyspnea, Denies dyspnea on exertion and Denies orthopnea Respiratory: Respiratory: Reports cough, Reports dyspnea, Denies dyspnea on exertion and Denies wheezing Gastrointestinal: Gastrointestinal: Reports abdominal pain (Right upper quadrant pain), Denies diarrhea, Denies nausea and Denies vomiting Genitourinary: Genitourinary: Denies hematuria, Denies genital lesions and Denies dysuria Musculoskeletal: Musculoskeletal: Denies arthralgias, Denies joint swelling and Denies numbness Integumentary/Breasts: Skin/Breast: Denies pruritus and Denies rash Neurologic: Denies dizziness, Denies syncope, Denies loss of vision and Denies numbness Psychiatric: Psychiatric: Denies anxiety and Denies depression Endocrine: Endocrine: Denies cold intolerance, Denies heat intolerance and Denies palpitations Hematologic/Lymphatic: Hematologic/Lymphatic: Denies easy bleeding and Denies easy bruising Allergic/Immunologic: Allergic/Immunologic: Denies urticaria and Denies wheezing Exam Const: General: cooperative, comfortable, no acute distress, alert, awake and well nourished Nutritional Appearance: well nourished Orientation/consciousness: patient oriented x3 HENMT: Head: normal to inspection, normocephalic and atraumatic Ears: hearing grossly normal bilaterally Face/Nose/Sinus: Normal external nose present, Normal nares present, no nasal discharge noted, normal facial e
[2022-12-19] MEDS: POTASSIUM CHLORIDE 20 MEQ ER TABLET 40 MEQ PO (10:51)
--- NOTE | 2022-12-19 13:53 | PM.IMPN ---
Progress Note: A&P Assessment and Plan (1) Bradycardia: Code(s): R00.1 - Bradycardia, unspecified Status: Acute Assessment and Plan: Patient's smart watch alerted her to the fact that her heart rate was in the upper 30s at around 02:00 as per HPI. This has occurred on a couple of occasions previously, typically at nighttime, though it is usually only transient. She is asymptomatic with this with no feelings of dizziness, lightheadedness, or syncope. She denies concerns for sleep apnea. Blood pressures have been stable and fact were high on arrival. Continue telemetry. TSH within normal limits. Echocardiogram reviewed. Cardiology consulted. Telemetry monitoring with sinus bradycardia had most no blocks or arrhythmia noted (2) hypertension: Code(s): O16.5 - Unspecified maternal hypertension, complicating the puerperium Status: Acute Assessment and Plan: Blood pressure was as high as 190 systolic in the ED. She received nifedipine 10 mg p.o. x1 in her blood pressure has since normalized. She has never had high blood pressures in the past. I am wondering if this may be related to the steroids that she was started on. Hold scheduled doses of nifedipine for now and continue to monitor. Prednisone has been discontinued. Likely due to steroid induced/pain induced (3) Upper respiratory infection: Code(s): J06.9 - Acute upper respiratory infection, unspecified Status: Acute Assessment and Plan: Patient reports upper respiratory symptoms for the last week or so, improving on amoxicillin. She has been taking prednisone though she has no wheezing on exam and that will be discontinued. Pleuritic pain may very well be related to viral URI (COVID negative) however with exertional dyspnea and bradycardia it may be prudent to rule out PE. D-dimer came back mildly elevated discussed doing CT to rule out PE and/or other etiologies her right sided chest pain. Which I suspect is related to severe pneumonia. She is already on antibiotics is be continued She is agreeable for CTA which will be ordered If CTA is negative be okay to discharge on oral antibiotics Subjective Date/time seen: 12/19/22 13:53 Interval history: Feels better. No shortness of breath however had right-sided chest pain that woke her up at night was bradycardic at that time. Denies any leg swelling. Denies any fever. Has been having cough and shortness of breath and wheezing since past week. She started antibiotics with Augmentin recently she was also started on steroid blood pressure was elevated upon arrival to the ER. Improved down to normal since then Review of Systems Review of Systems: All systems reviewed & are unremarkable except as noted in HPI and below Exam Narrative: General: Well-developed, nontoxic-appearing female sitting up in bed in no acute distress. HEENT: PERRL, EOMI. Sclera anicteric. Oral mucosa moist. Oropharynx clear. Neck: Supple. No JVD or bruits. Respiratory: Lungs with mild crypt/rhonchi on right lower lobe rest areas are clear to auscultation Cardiovascular: Bradycardic with normal S1-S2. No murmur. Heart rate is right around 60 at the time my evaluation. Gastrointestinal: Abdomen is soft, nontender, and nondistended with positive bowel sounds. Skin: Warm and dry. No rash or lesions on limited exam. Extremities: No cyanosis, clubbing, or edema. Radial and pedal pulses intact. No palpable knots or cords. Neurological: Alert. Cranial nerves 2-12 are grossly intact. No gross focal deficits to casual conversation. Psychiatric: Pleasant and cooperative with normal mood and affect. Judgment and insight intact. Objective Data Vital Signs Vital Signs: Vital Signs - 24 hr 12/18/22 15:31 12/18/22 16:00 12/18/22 20:00 Temperature Pulse Rate 68 52 L Respiratory Rate Blood Pressure 135/79 Pulse Oximetry 95 Oxygen Delivery Room Air 12/18/22 21:
[2022-12-19] MEDS: ACETAMINOPHEN 325 MG TABLET 650 MG PO (20:54)
[2022-12-20] VITALS: PULSE 58
[2022-12-20 04:00] VITALS: PULSE 56
[2022-12-20 05:49] VITALS: BP 112/76; PULSE 64; RESP 17; TEMP 36.4; O2SAT 95
--- NOTE | 2022-12-20 07:10 | PM.GYNPNOP ---
CUTTER BARREL DRUM - A/P Time Spent With Patient Time: Total time spent is greater than 50% in coordination of care (as documented) at patient's floor/unit and/or counseling patient: Time with patient: less than 15 minutes CUTTER BARREL DRUM- PN:Devyn Post-Op Subjective Date/time seen: 12/20/22 07:10 Interval history: Feels better. No shortness of breath however had right-sided chest pain that woke her up at night was bradycardic at that time. Denies any leg swelling. Denies any fever. Has been having cough and shortness of breath and wheezing since past week. She started antibiotics with Augmentin recently she was also started on steroid blood pressure was elevated upon arrival to the ER. Improved down to normal since then CUTTER BARREL DRUM - PN: Obj Data Vital Signs Vital Signs: Vital Signs - 24 hr 12/19/22 09:30 12/19/22 08:00 12/19/22 12:00 Temperature Pulse Rate 72 61 Respiratory Rate Blood Pressure Pulse Oximetry Oxygen Delivery Room Air 12/19/22 14:00 12/19/22 16:00 12/19/22 22:00 Temperature 97.7 F 97.9 F Pulse Rate 71 61 61 Respiratory Rate 16 17 Blood Pressure 138/80 130/77 Pulse Oximetry 96 96 Oxygen Delivery 12/19/22 20:00 12/19/22 20:00 12/20/22 00:00 Temperature Pulse Rate 77 58 L Respiratory Rate Blood Pressure Pulse Oximetry Oxygen Delivery Room Air 12/20/22 04:00 12/20/22 05:49 Temperature 97.6 F Pulse Rate 56 L 64 Respiratory Rate 17 Blood Pressure 112/76 Pulse Oximetry 95 Oxygen Delivery Intake/Output Intake/Output: Intake & Output 12/17/22 12/18/22 12/19/22 12/20/22 23:59 23:59 23:59 23:59 Intake Total 1100 2110 550 Output Total 2200 500 Balance 1100 -90 50 Meds/Results Medications: Active Medications Generic Name Dose Route Start Last Admin Trade Name Freq PRN Reason Stop Dose Admin Acetaminophen 650 mg 12/18/22 09:19 12/19/22 20:54 Acetaminophen 325 Mg Tablet PO 650 mg Q4H PRN Administration Mild Pain (1-3) or Fever Hydrocodone Bitart/Acetaminophen 1 tab 12/18/22 09:19 Hydrocodone/Acetaminophen (*Crx) 5-325 Mg Tablet PO Q4H PRN Pain Rated 4-6 Amoxicillin/Clavulanate Potassium 1 tablet 12/18/22 21:00 12/19/22 20:38 Amoxicillin/Clavulanate K 875-125 Mg Tab PO 1 tablet Q12HR TAYLER Administration Fentanyl Citrate 50 mcg 12/18/22 09:19 Fentanyl Citrate Inj (*Crx) 100 Mcg/2 Ml Vial IV PUSH Q2H PRN Pain Rated 7-10 Perflutren Lipid Microsphere 0 ml 12/18/22 09:19 Perflutren Lipid Microspheres 1.5 Ml Vial Diluted To 10 Ml Total Volume IV PUSH 12/21/22 09:21 ONCE PRN adequate visualization Protocol Vit/Calcium/Iron/Folic Ac 1 tab 12/18/22 17:00 12/19/22 09:39 Multivit/Min/Pren/Fol Ac/Iron Tablet BY MOUTH 1 tab DAILY TAYLER Administration Radiology Results: ITS Impressions Chest X-Ray 12/18/22 08:50 IMPRESSION: No active cardiopulmonary disease Possible minimal pleural effusions Status post cholecystectomy Chest CTA 12/19/22 21:14 IMPRESSION: No CT evidence of acute pulmonary embolus. Scattered tree-in-bud opacities, most evident in the right lower lobe, as can be seen with atypical infection (MAC, TB, fungal), ABPA, airways disease (CF, bronchiectasis), and aspiration. Labs 12/18/22 07:35 12/18/22 14:27
--- NOTE | 2022-12-20 07:11 | PM.GYNPNOP ---
PROCESS COORDINATOR - A/P Postoperative Postoperative status: doing well Postoperative plan: discharge Time Spent With Patient Time: Total time spent is greater than 50% in coordination of care (as documented) at patient's floor/unit and/or counseling patient: Time with patient: less than 15 minutes PROCESS COORDINATOR- PN:Devyn Post-Op Subjective Date/time seen: 12/20/22 07:11 Interval history: Feels better. No shortness of breath however had right-sided chest pain that woke her up at night was bradycardic at that time. Denies any leg swelling. Denies any fever. Has been having cough and shortness of breath and wheezing since past week. She started antibiotics with Augmentin recently she was also started on steroid blood pressure was elevated upon arrival to the ER. Improved down to normal since then Review of Systems Review of Systems: Echo and CTA normal. Blood pressures remain normal. Patient go today and follow up with Cardiology as per their directions. PROCESS COORDINATOR - PN: Obj Data Vital Signs Vital Signs: Vital Signs - 24 hr 12/19/22 09:30 12/19/22 08:00 12/19/22 12:00 Temperature Pulse Rate 72 61 Respiratory Rate Blood Pressure Pulse Oximetry Oxygen Delivery Room Air 12/19/22 14:00 12/19/22 16:00 12/19/22 22:00 Temperature 97.7 F 97.9 F Pulse Rate 71 61 61 Respiratory Rate 16 17 Blood Pressure 138/80 130/77 Pulse Oximetry 96 96 Oxygen Delivery 12/19/22 20:00 12/19/22 20:00 12/20/22 00:00 Temperature Pulse Rate 77 58 L Respiratory Rate Blood Pressure Pulse Oximetry Oxygen Delivery Room Air 12/20/22 04:00 12/20/22 05:49 Temperature 97.6 F Pulse Rate 56 L 64 Respiratory Rate 17 Blood Pressure 112/76 Pulse Oximetry 95 Oxygen Delivery Intake/Output Intake/Output: Intake & Output 12/17/22 12/18/22 12/19/22 12/20/22 23:59 23:59 23:59 23:59 Intake Total 1100 2110 550 Output Total 2200 500 Balance 1100 -90 50 Meds/Results Medications: Active Medications Generic Name Dose Route Start Last Admin Trade Name Freq PRN Reason Stop Dose Admin Acetaminophen 650 mg 12/18/22 09:19 12/19/22 20:54 Acetaminophen 325 Mg Tablet PO 650 mg Q4H PRN Administration Mild Pain (1-3) or Fever Hydrocodone Bitart/Acetaminophen 1 tab 12/18/22 09:19 Hydrocodone/Acetaminophen (*Crx) 5-325 Mg Tablet PO Q4H PRN Pain Rated 4-6 Amoxicillin/Clavulanate Potassium 1 tablet 12/18/22 21:00 12/19/22 20:38 Amoxicillin/Clavulanate K 875-125 Mg Tab PO 1 tablet Q12HR TAYLER Administration Fentanyl Citrate 50 mcg 12/18/22 09:19 Fentanyl Citrate Inj (*Crx) 100 Mcg/2 Ml Vial IV PUSH Q2H PRN Pain Rated 7-10 Perflutren Lipid Microsphere 0 ml 12/18/22 09:19 Perflutren Lipid Microspheres 1.5 Ml Vial Diluted To 10 Ml Total Volume IV PUSH 12/21/22 09:21 ONCE PRN adequate visualization Protocol Vit/Calcium/Iron/Folic Ac 1 tab 12/18/22 17:00 12/19/22 09:39 Multivit/Min/Pren/Fol Ac/Iron Tablet BY MOUTH 1 tab DAILY TAYLER Administration Radiology Results: ITS Impressions Chest X-Ray 12/18/22 08:50 IMPRESSION: No active cardiopulmonary disease Possible minimal pleural effusions Status post cholecystectomy Chest CTA 12/19/22 21:14 IMPRESSION: No CT evidence of acute pulmonary embolus. Scattered tree-in-bud opacities, most evident in the right lower lobe, as can be seen with atypical infection (MAC, TB, fungal), ABPA, airways disease (CF, bronchiectasis), and aspiration. Labs 12/18/22 07:35 12/18/22 14:27
--- NOTE | 2022-12-20 07:12 | PM.DS ---
DS: Admitting Diagnosis Discharge Date 12/20/2022 Admitting Diagnosis Bradycardia/hypertension DS: Discharge Diagnosis Discharge Diagnosis (1) Hypertension: Code(s): I10 - Essential (primary) hypertension Status: Acute (2) Shortness of breath: Code(s): R06.02 - Shortness of breath Status: Acute (3) Bradycardia: Code(s): R00.1 - Bradycardia, unspecified Status: Acute DS: Summary Hospital Course Reason for hospitalization: Patient was admitted with shortness of breath and high blood pressure Hospital Course: Patient was admitted through the ER received 2 doses of Procardia. Her hospital course were was unremarkable edge she had no further episodes of bradycardia or hypertension after 2 doses of Procardia. CTA was negative as was a fairly normal echocardiogram. She will be discharged home at to follow-up with cardiology. Time Spent with Patient Time attestation: Total time spent providing and/or coordinating discharge services: Discharge Plan Discharge Attending physician on discharge: Rafael Marks Consulting providers: Jae Mercedes; Lorenzo Nolasco Discharging Clinician: Rafael Marks Patient Disposition: Home, Self-Care Activity: may shower and as tolerated Diet: heart healthy Patient Instructions: Antibiotic Form Stand Alone Forms: General Discharge Information Follow-up/Referrals: Rafael Marks MD [Physician] - Lorenzo Nolasco MD [Physician] - Discharge Medications: No Action [id number] [id number] mg-mcg-mg Combo Pack See Rx Instructions .ROUTE .COMPLEX Rx Instructions: 2 vitamins once daily ibuprofen 600 mg tablet 600 mg PO Q6H PRN (Reason: cramps) Qty: 30 0RF prednisone 5 mg tablet 5 mg PO BID Rx Instructions: Take 4 tablets twice daily amoxicillin-pot clavulanate 875-125 mg tablet 1 tablet PO BID Rx Instructions: Take 1 tablet twice daily Date of admission: 12/18/22 09:20 Primary Care Provider: PHYSICIAN NOT ON STAFF,NONSTAFF Admitting Provider: Rafael Marks Attending physician on admission: Rafael Marks Condition: Stable
[2022-12-20 09:00] VITALS: PULSE 72; O2SAT 95
[2022-12-20] MEDS: MULTIVIT/MIN/PREN/FOL AC/IRON TABLET 1 TAB BY MOUTH (09:38)
[2022-12-20] MEDS: AMOXICILLIN/CLAVULANATE K 875-125 MG TAB 1 TABLET PO (09:38)
--- NOTE | 2022-12-20 10:22 | PM.IMPN ---
Progress Note: A&P Assessment and Plan (1) Bradycardia: Code(s): R00.1 - Bradycardia, unspecified Status: Acute Assessment and Plan: Patient's smart watch alerted her to the fact that her heart rate was in the upper 30s at around 02:00 as per HPI. This has occurred on a couple of occasions previously, typically at nighttime, though it is usually only transient. She is asymptomatic with this with no feelings of dizziness, lightheadedness, or syncope. She denies concerns for sleep apnea. Blood pressures have been stable and fact were high on arrival. Continue telemetry. TSH within normal limits. Echocardiogram reviewed. Cardiology consulted. Telemetry monitoring with sinus bradycardia had most no blocks or arrhythmia noted (2) hypertension: Code(s): O16.5 - Unspecified maternal hypertension, complicating the puerperium Status: Acute Assessment and Plan: Blood pressure was as high as 190 systolic in the ED. She received nifedipine 10 mg p.o. x1 in her blood pressure has since normalized. She has never had high blood pressures in the past. I am wondering if this may be related to the steroids that she was started on. Hold scheduled doses of nifedipine for now and continue to monitor. Prednisone has been discontinued. Likely due to steroid induced/pain induced (3) Upper respiratory infection: Code(s): J06.9 - Acute upper respiratory infection, unspecified Status: Acute Assessment and Plan: Patient reports upper respiratory symptoms for the last week or so, improving on amoxicillin. She has been taking prednisone though she has no wheezing on exam and that will be discontinued. Pleuritic pain may very well be related to viral URI (COVID negative) however with exertional dyspnea and bradycardia it may be prudent to rule out PE. D-dimer came back mildly elevated discussed doing CT to rule out PE and/or other etiologies her right sided chest pain. Which I suspect is related to severe pneumonia. She is already on antibiotics is be continued She is agreeable for CTA which will be ordered CTA came back negative for PE Does show right lower lobe tree in bud opacities suggestive bacterial pneumonia. Perhaps atypical. She is already on Augmentin. Will add azithromycin. Discussed risk and benefits while breast feeding. She may get repeat CT chest to ensure resolution of these tree-in-bud opacities and a right lower lobe. This was all discussed with the patient. Subjective Date/time seen: 12/20/22 10:22 Interval history: No overnight events. Remains afebrile. Blood pressure is better. No nausea vomiting. Mild cough. Review of Systems Review of Systems: All systems reviewed & are unremarkable except as noted in HPI and below Exam Narrative: General: Well-developed, nontoxic-appearing female sitting up in bed in no acute distress. HEENT: PERRL, EOMI. Sclera anicteric. Oral mucosa moist. Oropharynx clear. Neck: Supple. No JVD or bruits. Respiratory: Lungs with mild crypt/rhonchi on right lower lobe rest areas are clear to auscultation Cardiovascular: Bradycardic with normal S1-S2. No murmur. Heart rate is right around 60 at the time my evaluation. Gastrointestinal: Abdomen is soft, nontender, and nondistended with positive bowel sounds. Skin: Warm and dry. No rash or lesions on limited exam. Extremities: No cyanosis, clubbing, or edema. Radial and pedal pulses intact. No palpable knots or cords. Neurological: Alert. Cranial nerves 2-12 are grossly intact. No gross focal deficits to casual conversation. Psychiatric: Pleasant and cooperative with normal mood and affect. Judgment and insight intact. Objective Data Vital Signs Vital Signs: Vital Signs - 24 hr 12/19/22 12:00 12/19/22 14:00 12/19/22 16:00 Temperature 97.7 F Pulse Rate 61 71 61 Respiratory Rate 16 Blood Pressure 138/80 Pulse Oximetry 96 Oxygen Delivery 12/19/22 2
== END 2022-12-20 11:00 | disposition home or self-care (01) ==
LOC: ANHED 09:19 → ANH3MEDSUR 09:54 → ANH2MED 10:35
PROVIDERS: Emergency Medicine; Internal Medicine Cardiovascular Disease; Physician Assistant; Admitting Provider Obstetrics & Gynecology; Emergency Provider Emergency Medicine; Visit Provider Obstetrics & Gynecology
DX: I10 Essential (primary) hypertension (principal); J06.9 Acute upper respiratory infection, unspecified; I45.10 Unspecified right bundle-branch block; R00.1 Bradycardia, unspecified; Z20.822 Contact with and (suspected) exposure to COVID-19
CPT/HCPCS: 36415; 71046; 71275; 80048; 80053; 81003; 83690; 83735; 83880; 84443; 84484; 85025; 85380; 85610; 85730; 87636; 93005; 93306; 96374; 99285; A9270; G0378; J3010; Q9967

== ENCOUNTER 2024-12-15 12:31 | Emergency (ER) | payer OTHER, SELFPAY ==
[2024-12-15 12:49] VITALS: BP 138/80; PULSE 103; RESP 18; TEMP 37.2; O2SAT 100
--- NOTE | 2024-12-15 12:52 | ED.URI ---
HPI - URI/Sore Throat General Chief Complaint: Upper Respiratory Infection Stated Complaint: SORE THROAT History of Present Illness HPI Narrative: 39 y/o female presented for c/o sore throat, headache, body aches. Onset yesterday. Not taking anything for symptoms. Denies sob, wheezing, n/v/d. Related Data Home Medications ?Medication ?Instructions ?Recorded ?Confirmed ?Last Taken ?Type 12/15/24 Unknown History Allergies Allergy/AdvReac Type Severity Reaction Status Date / Time No Known Allergies Allergy Verified 12/15/24 12:44 Review of Systems Review of Systems: CONSTITUTIONAL: reports body aches, fever, chills EYES: Denies visual changes, redness, or discharge. ENT: reports sore throat Denies rhinorrhea, congestion, or otalgia. CARDIOVASCULAR: Denies chest pain, palpitations, or edema. RESPIRATORY: Denies dyspnea. GASTROINTESTINAL: Denies abdominal pain, nausea, vomiting, or diarrhea. SKIN: Denies rash NEUROLOGIC: reports headache PMFSH Past Medical History Medical History Scoliosis Surgical History Surgical History History of appendectomy History of arthroscopy of both knees History of section 03/19/2018, 10/25/2022. History of laparoscopic cholecystectomy History of laparoscopy (2005) Fallopian tube cyst drained. Family History Family History Mother Family history of hypercholesterolemia Hypertension Grandparent Family history of glaucoma Cerebrovascular accident Carcinoma of colon Family history of malignant neoplasm of breast Father Diabetes mellitus Social History Social History Social History: Surrogate medical decision maker: Wilver Winklerjudith, spouse. Code status: Full code. Smoking status: Never smoker Second hand tobacco smoke exposure: No Alcohol intake: never Substance use: never Lack of Transportation: No Lack of Food: Never True Current Housing: I Have Housing Concerned About Future Housing: No Difficulty Paying Gas/Electric Bills: No Difficulty Paying for Meds: No Currently Unemployed: No Education: Master's Degree or Higher Difficulty w/ Childcare or Family Care: No Living arrangements: with family Additional living arrangements comments: Lives with spouse and 3 young children (4, 2, 7 weeks). 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 Spiritual care concerns: No Exam Narrative: GENERAL: well-appearing, no acute distress. EYES: conjunctivae clear ENT: Mucous membranes moist. TM pearly stephenson with normal light reflex bilaterally; no tragal tenderness. Oropharynx severely erythematous without lesions. Tonsils enlarged 2+ with exudate. No drooling, no hoarseness, no trismus, uvula midline. No tripod positioning, hot potato voice, or soft palate swelling. NECK: Supple. No lymphadenopathy CHEST: Clear to auscultation, breath sounds equal. No respiratory distress, speaks in full sentences. HEART: Regular rate and rhythm. No murmur heard. SKIN: Warm, dry, no rash. NEURO: Alert and oriented x3. Course Course Emergency Course: Patient is aware of diagnosis, understands and agrees to treatment plan. Anticipatory guidance given. Patient agrees to follow-up as directed and is aware of reasons to seek care at the emergency department. Portions of this record may have been created with voice recognition software Level of Care: Express Care Visit Vital Signs Vital signs: Vital Signs Temperature 98.9 F 12/15/24 12:49 Pulse Rate 103 H 12/15/24 12:49 Respiratory Rate 18 12/15/24 12:49 Blood Pressure 138/80 12/15/24 12:49 Pulse Oximetry 100 12/15/24 12:49 Oxygen Delivery Room Air 12/15/24 12:49 Temperature 98.9 F 12/15/24 12:49 Pulse Rate 103 H 12/15/24 12:49 Respiratory Rate 18 12/15/24 12:49 Blood Pressure 138/80 12/15/24 12:49 Pulse Oximetry 100 12/15/24 12:49 Oxygen Delivery Room Air 12/15/24 12:49 MDM - URI/Sore Throat MDM Narrative Medical decision making narrative: POS strep result reviewed with pt. Advise supportive treatments. Patient is appropriate for outpatient treatment and follow-up. Differential Diagnosis Differential diagnosis: Likely upper respiratory infection, viral infection and pharyngitis Lab Data Labs: Lab Results 12/15/24 Range/Units 12:52 POC Grp A Strep Screen Positive (Negative) Discharge Plan Discharge Clinical Impression: Strep pharyngitis Patient Disposition: Home Condition: Stable Instructions: Antibiotic Form, Strep Throat (ED) Additional Instructions: - Take the antibiotic as directed. Fever and sore throat typically resolve within one to three days. - Most patients can return to work, after 12 to 24 hours of antibiotic therapy, provided you are fever free and otherwise well. -Eat and drink things that are easy to swallow, like soft foods, cool liquids, tea with honey, or popsicles . -Salt water gargles and/or may use topical anesthetic ( Chloraseptic spray) or lozenges to relieve dryness or throat pain -Alternate Tylenol and ibuprofen as needed for pain and fever as directed. -Frequent hand washing or hand toe former stitchdowns is one of the best ways to prevent spread of infection. Throw away the toothbrush after 24hours of antibiotic. -Follow up with primary care provider in 2-3 days if condition is not improving -Go to the ER if you have trouble breathing, cannot drink enough fluids, have muffled voice or drooling, difficulty opening your mouth, or severe swelling. Patient Language: Greenlandic Prescriptions: New amoxicillin 500 mg tablet 1,000 mg PO DAILY 10 Days Qty: 20 0RF No Action Follow-up/Referrals: Gaby,June Curiel APRN [Primary Care Provider, Unknown] Time of Disposition: 13:12
[2024-12-15 12:54] LABS: EDSTREPNEGPOS1 Positive (Negative)
== END 2024-12-15 13:18 | disposition home or self-care (01) ==
PROVIDERS: Emergency Provider Nurse Practitioner Family; PCP Nurse Practitioner
DX: J02.0 Streptococcal pharyngitis (principal); M41.9 Scoliosis, unspecified
CPT/HCPCS: 87880; 99213; G0463

== ENCOUNTER 2025-01-24 15:13 | Outpatient (CLI) | payer OTHER, SELFPAY ==
[2025-01-24 15:58] LABS: Hematocrit 37.7 % (37.0-47.0); Hemoglobin 12.1 g/dL (12.0-15.0); Mean Corpuscular HGB Conc 32.1 g/dl (32-36); Mean Corpuscular Hemoglobin 29.0 pg (26-34); Mean Corpuscular Volume 90.4 fl (80-100); Platelet Count Result 315 k/mm3 (150-375); Red Blood Count 4.17 M/mm3 (4.2-5.4); White Blood Count 8.5 K/mm3 (4.5-10.0)
[2025-01-24 16:02] LABS: Add Urine Microscopic? YES; Appearance Urine Clear (Clear); Glucose Urine UA Negative (Negative); Leukocyte Esterase Ur Trace LEU/UL (Negative); Nitrate Urine Negative (Negative); Specific Grav Ur 1.017 (1.001-1.035)
[2025-01-24 16:29] LABS: Thyroid Stimulating Hormone 0.403 uIU/mL (0.465-4.680)
[2025-01-24 16:39] LABS: HIV 1/2 Ab P24 Ag Result Negative (Negative)
--- OUTSIDE RECORDS SUMMARY | 2025-01-24 17:21 | XMS_ITS | Clinical Summary ---
Author Organization [facility] Address [address] [place] [address] Phone Care Team Providers Care Cruise Counselor Name Role Phone Unavailable Primary Care Provider Unavailabl e Allergies No known active allergies Medications Vit-Fe Fumarate-FA ( VITAMIN PO) Take 1 Tab by mouth daily. Active Social History Tobacco Use Types Packs/Day Years Used Date Smoking Tobacco: Never Assessed Comments Unknown Sex and Gender Information Value Date Recorded Sex Assigned at Not on file Legal Sex Female 3:51 PM CDT Gender Identity Not on file Sexual Orientation Not on file Plan of Treatment Health Maintenance Due Date Last Done Comments Hepatitis C Virus (HCV) Screening 1987 TdaP Immunization 1987 Hepatitis B Immunization (1 of 3 - 19+ 3-dose series) 08/18/2006 Pap Smear 08/18/2008 Human Papillomavirus (HPV) Immunization (1 - 3-dose SCDM series) 08/18/2014 Cervical Cancer Screening (CCS) 08/18/2017 HPV/Cotest 08/18/2017 Influenza Immunization (#1) 2024 SARS-COV-2 Immunization ( season) 2024 Respiratory Syncytial Virus (RSV) Immunization (Adult) (1 - 1-dose 75+ series) 08/18/2062 Meningococcal Immunization (ACWY) Aged Out No longer eligible based on patient's age to complete this topic Pneumococcal Immunization Combined Aged Out No longer eligible based on patient's age to complete this topic Rotavirus Immunization Aged Out No lo nger eligible based on patient's age to complete this topic
--- OUTSIDE RECORDS SUMMARY | 2025-01-24 17:21 | XMS_ITS | Clinical Summary ---
Author Organization [facility] Address [address] [place] [id number] Care Team Providers Care [place] Seamer Name Role Phone June Griffin AURIST Primary Care Provider [phone] Allergies No known active allergies Medications Vit-DSS-Fe Cbn-FA ( AD OR) Take 1 tablet by mouth daily. Active Encounters Date Type Department Care Team Description 12/15/2024 Scan HEALTH INFO SRVCS Scanned, [facility] 11/13/2024 Results Follow-Up [facility] [address] [place] [address] June Griffin, [place] C-REACTIVE PROTEIN, SED RATE, ERYTHROCYTE (ESR), CBC W/DIFF AUTOMATED 11/12/2024 8:40 AM CDT Office Visit [facility] [address] [place] [address] June Griffin, AURIST Results 11/12/2024 Telephone [facility] [address] [place], [place] [id number] June Griffin, [place] Record Request 11/12/2024 Travel from Last 3 Months Family History Medical History Relation Comments Diabetes Father Miscarriages / Stillbirths Maternal Aunt 1 Miscarriages / Stillbirths Maternal Aunt 2 Miscarriages / Stillbirths Maternal Aunt 3 Cancer Maternal Grandfather Colon Arthritis Maternal Grandmother Breast Cancer Maternal Grandmother Cancer Maternal Grandmother Breast Hypertension Maternal Grandmother Miscarriages / Stillbirths Maternal Grandmother Arthritis Mother Hypertension Mother Kidney Disease Mother Liver Disease Mother Rheumatoid Arthritis Mother chronic kidney disease Mother Diabetes Paternal Aunt 1 Stroke Paternal Aunt 1 Diabetes Paternal Aunt 2 Vision loss Paternal Aunt 2 Stroke Paternal Grandfather Heart Disease Paternal Uncle 1 Heart Disease Paternal Uncle 2 Miscarriages / Stillbirths Sister Relation Status Comments Father Alive Maternal Aunt 1 Alive Maternal Aunt 2 Alive Maternal Aunt 3 Alive Maternal Grandfather Alive Maternal Grandmother Alive Mother Alive Paternal Aunt 1 Alive Paternal Aunt 2 Alive Paternal Grandfather Alive Paternal Uncle 1 Paternal Uncle 2 Alive Sister Alive Social History Tobacco Use Types Packs/Day Years Used Date Smoking Tobacco: Never Passive Smoke Exposure: Never Smokeless Tobacco: Never Tobacco Cessation:Counseling Given: No Alcohol Use Standard Drinks/Week Comments Yes 0 (1 standard drink = 0.6 oz pur e alcohol) Occasionally PHQ-2 Answer Date Recorded Patient Health Questionnaire-2 Score 0 07/11/2024 Comments No Sex and Gender Information Value Date Recorded Sex Assigned at Female 07/11/2024 3:25 PM CDT Legal Sex Female 3:00 PM CDT Gender Identity Female 07/11/2024 3:25 PM CDT Sexual Orientation Straight 07/11/2024 3: 25 PM CDT Last Filed Vital Signs Vital Sign Reading Time Taken Comments Blood Pressure 125/78 11/12/2024 8:29 AM CDT Pulse 60 11/12/2024 8:29 AM CDT Temperature 36.4 C (97.6 F) 11/12/2024 8:29 AM CDT Respiratory Rate 18 11/12/2024 8:29 AM CDT Oxygen Saturation 99% 11/12/2024 8:29 AM CDT Inhaled Oxygen Concentration - - Weight 119.4 kg (263 lb 3.2 oz) 11/12/2024 8:29 AM CDT Height 167.6 cm (5' 6) 11/12/2024 8:29 AM CDT Body Mass Index 42.48 11/12/2024 8:29 AM CDT Plan of Treatment Upcoming Encounters Date Type Department Care Team (Late st Contact Info) Description 07/11/2025 8:00 AM CDT Office Visit [facility] - [address] [place] [address] June Griffin, AURIST [address] [place] [address] Health Maintenance Due Date Last Done Comments Cervical Cancer Screening Pa p Smear (Age 30 to 64) Every 3 Years 1987 Hepatitis B Vaccines (1 of 3 - 19+ 3-dose series) 08/18/2006 HPV Vaccines (1 - 3-dose SCD M series) 08/18/2014 COVID-19 Vaccine (3 - 2024-2 6 season) 2024 06/30/2020, 05/28/2020 Influenza Adult (#1) 2025 Annual Physical 07/11/2025 07/11/2024 Cervical Cancer Screening Pa p with HPV Testing (Age 30 to 64) Every 5 Years 08/09/2029 08/09/2024 Cervical Cancer Screening wi th HPV 08/09/2029 DTaP, Tdap and Td Vaccines ( 4 - Td or Tdap) 09/25/2032 09/25/2022, 02/27/2020, 03/03/2018 PHQ-2 (Physician [place]) Completed 07/11/2024 Hepatitis C Completed 07/31/2024 Hepatitis A Vaccines Aged Out No long er eligible based on patient's age to complete this topic Meningococcal B Vaccine Aged Out No l onger eligible based on patient's age to complete this topic Meningococcal Vaccine Aged Out No alex bandar eligible based on patient's age to complete this topic Pneumococcal Vaccine: Pediatrics (0 to 5 Years) and At-Risk Patients (6 to 49 Years) Aged Out No longer eligible b ased on patient's age to complete this topic RSV Immunizations Under 20 Months Aged Out No longer eligible b ased on patient's age to complete this topic Procedures Procedure Name Priority Date/Time Associated Diagnosis Comments CBC W/DIFF AUTOMATED Routine 11/12/2024 9:09 AM CDT Elevated sed rate SED RATE, ERYTHROCYTE (ESR) Routine 11/12/2024 9:09 AM CDT Elevated sed rate C-REACTIVE PROTEIN Routine 11/12/2024 9: 09 AM CDT Elevated sed rate OUTSIDE CYTOPATH CERV/VAG INTERPRET (PAP) 08/09/2024 HEPATITIS C ANTIBODY Routine 07/31/2024 7:19 AM CDT Need for hepatitis C screening test from Last 3 Months or Most Recently Relevant to Health Maintenance Results * (ABNORMAL) SED RATE, ERYTHROCYTE (ESR) (11/12/2024 9:09 AM CDT) ESR 34(H) 0 - 19 MM/HR 11/12/2024 3:56 PM CDT [facility] 11/12/2024 9:09 AM CDT us June Griffin NP LABORATORY Final Resul t Performing Organization Address [facility] Co de Phone Number [address] [address], [place] [phone] * (ABNORMAL) C-REACTIVE PROTEIN (11/12/2024 9:09 AM CDT) C-REACTIVE PROTEIN 0.64(H) <0.30 mg/dL 11/12/2024 3:38 PM CDT [facility] 11/12/2024 9:09 AM CDT us June Griffin NP LABORATORY Final Resul t Performing Organization Address City/[facility]/ZIP Co de Phone Number [address] [address], [place] [phone] * (ABNORMAL) CBC W/DIFF AUTOMATED (11/12/2024 9:09 AM CDT) WBC 5.93 4.00 - 10.80 x10'3/uL 11/12/2024 4:17 PM CDT [facility] RBC 4.56 4.10 - 5.40 x10'6/uL 11/12/2024 4:17 PM CDT [facility] HGB 13.2 12.0 - 16.0 G/DL 11/12/2024 4:17 PM CDT [facility] HCT 40.8 36.0 - 47.0 % 11/12/2024 4:17 PM CDT [facility] MCV 89.5 78.0 - 100.0 FL 11/12/2024 4:17 PM CDT [facility] MCH 28.9 27.0 - 31.0 PG 11/12/2024 4:17 PM CDT [facility] MCHC 32.4(L) 33.0 - 36.0 G/DL 11/12/2024 4:17 PM CDT [facility] RDW 13.2 11.5 - 14.5 % 11/12/2024 4:17 PM CDT [facility] PLT 333 150 - 350 x10'3/uL 11/12/2024 4:17 PM CDT [facility] MPV 10.1 7.4 - 10.4 FL 11/12/2024 4:17 PM CDT [facility] DIFFERENTIAL TYPE AUTOMATED DIFFERENTIAL 11/12/2024 4:18 PM CDT [facility] NEUTROPHILS % 60.0 % 11/12/2024 4:18 PM CDT [facility] LYMPHOCYTES % 26.5 % 11/12/2024 4:18 PM CDT [facility] MONOCYTES % 7.9 % 11/12/2024 4:18 PM CDT [facility] EOSINOPHILS % 4.7 % 11/12/2024 4:18 PM CDT [facility] BASOPHILS % 0.7 % 11/12/2024 4:18 PM CDT [facility] IMMATURE GRANS % 0.2 % 11/12/2024 4:18 PM CDT [facility] ABS. NEUTROPHILS 3.56 1.60 - 8.30 x10'3/uL 11/12/2024 4:18 PM CDT [facility] ABS. LYMPHOCYTES 1.57 0.80 - 4.70 x10'3/uL 11/12/2024 4:18 PM CDT [facility] ABS. MONOCYTES 0.47 0.00 - 1.50 x10'3/uL 11/12/2024 4:18 PM CDT [facility] ABS. EOSINOPHILS 0.28 0.00 - 0.40 x10'3/uL 11/12/2024 4:18 PM CDT [facility] ABS. BASOPHILS 0.04 0.00 - 0.20 x10'3/uL 11/12/2024 4:18 PM CDT [facility] ABS. IMMATURE GRANULOCYTES 0.01 0.00 - 0.03 x10'3/uL 11/12/2024 4:18 PM CDT [facility] 11/12/2024 9:09 AM CDT June Griffin NP LABORATORY Final Resul t [facility] [address] [place] [address], * PAP SMEAR WITH HPV (08/09/2024) 08/09/2024 us [facility] Scanned SCANNING Final Resu lt * HEPATITIS C ANTIBODY (07/31/2024 7:19 AM CDT) HEPATITIS C AB NON-REACTI VE NON-REACT [place] 07/31/2024 6:51 PM CDT [facility] Comment: ANTIBODIES TO HCV NOT DETECTED. DOES NOT EXCLUDE THE POSSIBILITY OF EXPOSURE TO HCV. 07/31/2024 7:19 AM CDT June Griffin NP LABORATORY Final Resul t [facility] [address] [place] [address], [place] [phone] [id number] from Last 3 Months or Most Recently Relevant to Health Maintenance Insurance [employer] OPEN ACCESS [facility] Care Teams [place] Seamer Relationship Specialty Start Date End Date June Griffin NP [address] [place] [address] PCP - General NURSE PRACTITIONER 07/11/24
[2025-01-24 18:01] LABS: Syphilis IgG/IgM Antibody Non-Reactive (Nonreactive)
[2025-01-24 22:29] LABS: Hepatitis B Surface Antigen Negative (Negative)
[2025-01-25 08:08] LABS: Varicella-Zoster Ab, IgG Reactive (Non Reactive)
== END 2025-01-24 15:14 | disposition home or self-care (01) ==
LOC: ANHLAB 15:14
PROVIDERS: Visit Provider Obstetrics & Gynecology
DX: Z34.90 Encounter for supervision of normal pregnancy, unspecified, unspecified trimester (principal); Z3A.00 Weeks of gestation of pregnancy not specified
CPT/HCPCS: 36415; 81001; 83020; 84443; 85027; 85660; 86593; 86703; 86762; 86787; 86803; 86850; 86900; 86901; 87086; 87340; G0432